=== PATIENT | female | born 1990 | race Caucasian/White ===

== ENCOUNTER 2022-06-29 18:11 | Inpatient (IN) ==
[2022-06-29] MEDS ORDERED: ACETAMINOPHEN 325 MG TAB PO STA (18:18)
[2022-06-29 18:52] LABS: Hematocrit (blood only) 34.1 % (34.1-44.9); Hemoglobin 11.4 g/dl (12.0-16.0); Mean Corpuscular Hemoglobin 30.2 pg (25.0-34.0); Mean Corpuscular Hgb Conc 33.4 g/dL (32.0-36.0); Mean Corpuscular Volume 90.5 fL (80.0-100.0); Mean Platelet Volume 9.5 fL (9.4-12.3); Platelet Count 254 K/uL (130-400); RDW Coefficient of Variation 13.1 % (11.5-14.5); Red Blood Count 3.77 M/uL (3.93-5.22); White Blood Count 14.27 K/ul (4.8-10.8)
--- NOTE | 2022-06-29 18:54 | XRay Report ---
XR chest 1V not portable CLINICAL HISTORY: Chest Pain. COMPARISON STUDY: No previous studies for comparison. TECHNIQUE: 1 view of the chest FINDINGS: Single frontal view of the chest demonstrates the cardiomediastinal silhouette to be within normal li mits. The lungs are clear of alveolar opacities. There is no evidence for pleural effusion. There is no evidence for vascular congestion. There is no acute osseous pathology. IMPRESSION: 1. No acute cardiopulmonary disease. ACT 112: Negative or not required by law. Electronically signed by: Vic Singletary M.D. 06/29/2022 6:52 PM
[2022-06-29 19:03] LABS: INR 1.1 (0.9-1.1); Partial Thromboplastin Ratio 0.9; Partial Thromboplastin Time 25.5 Seconds (21.0-31.0); Prothrombin Time 11.4 Seconds (9.0-12.0)
[2022-06-29 19:10] LABS: ALC (manual) 7.42 K/uL (1.2-3.4); ANC (manual) 6.56 K/uL (1.4-6.5); Eosinophils # (manual) 0.14 K/uL (0-0.50); Eosinophils % (manual) 1 %; Lymphocytes # (manual) 2.43 K/uL (1.2-3.4); Lymphocytes % (manual) 17 %; Monocytes # (manual) 0.29 K/uL (0.24-0.82); Monocytes % (manual) 2 %; Neutrophils # (manual) 6.56 K/uL (1.4-6.5); Neutrophils % (manual) 46 %; Reactive Lymphocytes # (manual) 4.99 K/uL; Reactive Lymphocytes % (manual) 35 %
[2022-06-29 19:16] LABS: Albumin Globulin Ratio 1.1 (0.9-2); Albumin Level 3.8 gm/dl (3.4-5.0); Bilirubin,Total 0.6 mg/dl (0.2-1.0); Creatinine Clr Calc Pharmacy 83.7 ml/min; Est GFR (African American) 96.8 ml/min; Est GFR (Non-African American) 83.5 ml/min; Globulin 3.4 gm/dl (2.5-4.0); Potassium 3.7 mmol/L (3.5-5.1); Total Protein 7.2 gm/dl (6.0-8.3)
[2022-06-29 19:21] LABS: Troponin I High Sensitivity 67.2 pg/ml (0-14)
--- NOTE | 2022-06-29 19:21 | Emergency Department Note ---
Impression & Plan Atypical chest pain, Elevated troponin I level, Thrombophlebitis, Transaminitis ED Provider Note NAME: ANNETTE BLAND AGE: 32 SEX: F : 1990 ARRIVES VIA: Walk-In INFORMANT: Patient, ED PROVIDER(S): Justo Brown MD Chief Complaint: Shortness of breath, chest pain, fever HPI: Patient presented due to concern for chest pain and shortness of breath which began around 2 PM today. 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 The patient reportedly had fever that time but the patient denies any cough. The patient does have exertional symptoms. The patient denies any prior history of DVT or PE does not take any control no recent travel or leg swelling or calf pain. Patient did not take anything for symptoms. The patient's discomfort and shortness of breath has been fairly constant since it began around 2 PM. Patient denies any abdominal pain nausea vomiting or cough. Patient denies any prior heart or lung history and denies any alcohol tobacco or drug use. ROS: See HPI for pertinent positives and negatives. A total of 10 systems were reviewed and otherwise negative. Past medical history: See below Surgical history: See below Social history: See below Physical Exam: GENERAL: NAD, wearing a mask, non-toxic. EYE EXAM: Normal conjunctiva. PERRL, no anisocoria and EOM's grossly intact w/o pain. NECK: Supple, no nuchal rigidity, no adenopathy, non-tender. No signs of meningismus. FROM of the neck with good chin to chest and neck extension. No stridor. LUNGS: Clear to auscultation. Normal chest wall mechanics. HEART: Tachycardic and regular, no MRG. ABDOMEN: Abdomen soft, non-tender, normo-active bowel sounds, no masses, no rebound or guarding. BACK: No CVA TTP. SKIN: No rashes and no bruising. UPPER EXTREMITIES: Upper extremities are grossly normal. LOWER EXTREMITIES: Grossly normal, no edema. Negative Homans' sign bilaterally. NEURO EXAM: A&O x3, cranial nerves II-XII grossly intact, normal speech, moves all 4 extremities. Differential diagnoses: Cardiac ischemia, aortic dissection, pulmonary embolism, pneumothorax, pneumonia, pericarditis, myocarditis, esophageal rupture, GERD, cholecystitis, pancreatitis, musculoskeletal, as well as other pathologies. Course: Patient was seen and evaluated the bedside. Full history physical exam was performed. EKG interpreted by me Sinus tachycardia, rate 114, normal intervals, normal axis, no obvious ST elevations, T wave inversion in V2. Imaging Studies: See Below Cardiac monitoring: An order was placed for continuous cardiac monitoring. The monitor shows a rate of 110 with cardiac and regular rhythm. MDM: Patient presented due to concern for shortness of breath and chest pain. The patient was tachycardic with fever. The patient was ordered IV fluids antipyretics and a CT angio of the chest. Patient has a mild white count of 14 with a hemoglobin of 11. Patient's kidney function fairly unremarkable. The patient does have mild transaminitis with an elevated troponin at 67. Mild hyponatremia 133. Chest x-ray with no concerning findings. The patient's CT angiography does not show evidence of acute PE. Patient CT angiography shows minimal atelectasis at both lung bases but otherwise no acute disease. I did order a venous Doppler study as the patient stated that she had felt as later she had like a pulled muscle in her right calf. Patient was preferring to go home but I did recommend that the patient stay. The patient is agreeable to inpatient treatment at this time. I did speak with Dr. Griffith and the patient was admitted to the medicine service. I did eventually receive the results of the patient's venous right lower extremity ultrasound. Patient does have a 10 cm long segment of thrombosed right lesser saphenous vein consistent with superficial thrombophlebitis. No evidence of DVT. I did convey this finding and deferred any additional treatment to the inpatient team with Dr. Griffith. Past Med/Surg History Medical History (Updated 06/30/22 @ 00:35 by Justo Brown MD) No pertinent past medical history Surgical History (System 06/29/22 @ 20:52 by Hannah Brown) No pertinent past surgical history Social History (System 06/29/22 @ 20:52 by Hannah Brown) Smoking Status: Never smoker Preferred Language: Mexican Feels Safe at Home: Yes Allergies Allergies Allergy/AdvReac Type Severity Reaction Status Date / Time amoxicillin Allergy Severe Anaphylaxis Verified 06/29/22 20:52 Home Meds Home Medications Medication Instructions Recorded Confirmed omega-3 fatty acids 1,000 mg 1,000 mg PO DAILY 06/29/22 06/29/22 capsule Results & Data (ED) Vital Signs Vital Signs - 24 hr 06/29/22 18:15 06/29/22 18:15 06/29/22 18:23 Temperature 38.1 C H Temperature Source Temporal Artery Scan Pulse Rate 121 H Pulse Rate [Left Apical] Pulse Rate from SpO2 Sensor Pulse Rhythm [Left Apical] Pulse Strength [Left Apical] Respiratory Rate 18 Respiratory Effort / Characteristics Short of Breath Non-Labored Spontaneous Respiratory Depth Normal Blood Pressure 122/82 Blood Pressure [Right Arm] Blood Pressure Mean 95 Blood Pressure Mean [Right Arm] Pulse Oximetry 98 Oxygen Delivery Method Room Air Room Air Sepsis Recent Fever Within 48 Hours Yes Sepsis New/Unexplained Change in Mental Status No Sepsis Action Taken by Nursing No Action Required 06/29/22 19:06 06/29/22 19:06 06/29/22 19:07 Temperature Temperature Source Pulse Rate 105 H Pulse Rate [Left Apical] Pulse Rate from SpO2 Sensor Pulse Rhythm [Left Apical] Pulse Strength [Left Apical] Respiratory Rate 20 29 H Respiratory Effort / Characteristics Respiratory Depth Blood Pressure Blood Pressure [Right Arm] Blood Pressure Mean Blood Pressure Mean [Right Arm] Pulse Oximetry 98 Oxygen Delivery Method Room Air Room Air Sepsis Recent Fever Within 48 Hours Sepsis New/Unexplained Change in Mental Status Sepsis Action Taken by Nursing 06/29/22 19:10 06/29/22 19:17 06/29/22 19:17 Temperature Temperature Source Pulse Rate 105 H 109 H Pulse Rate [Left Apical] Pulse Rate from SpO2 Sensor Pulse Rhythm [Left Apical] Pulse Strength [Left Apical] Respiratory Rate 21 25 H Respiratory Effort / Characteristics Respiratory Depth Blood Pressure 108/70 Blood Pressure [Right Arm] Blood Pressure Mean 82 Blood Pressure Mean [Right Arm] Pulse Oximetry Oxygen Delivery Method Sepsis Recent Fever Within 48 Hours Sepsis New/Unexplained Change in Mental Status Sepsis Action Taken by Nursing 06/29/22 19:20 06/29/22 19:30 06/29/22 19:30 Temperature Temperature Source Pulse Rate 111 H 105 H Pulse Rate [Left Apical] Pulse Rate from SpO2 Sensor Pulse Rhythm [Left Apical] Pulse Strength [Left Apical] Respiratory Rate 16 24 Respiratory Effort / Characteristics Respiratory Depth Blood Pressure 102/70 Blood Pressure [Right Arm] Blood Pressure Mean 80 Blood Pressure Mean [Right Arm] Pulse Oximetry Oxygen Delivery Method Sepsis Recent Fever Within 48 Hours Sepsis New/Unexplained Change in Mental Status Sepsis Action Taken by Nursing 06/29/22 19:40 06/29/22 20:09 06/29/22 20:09 Temperature Temperature Source Pulse Rate 112 H 115 H Pulse Rate [Left Apical] Pulse Rate from SpO2 Sensor 116 H Pulse Rhythm [Left Apical] Pulse Strength [Left Apical] Respiratory Rate 22 20 Respiratory Effort / Characteristics Respiratory Depth Blood Pressure 114/84 Blood Pressure [Right Arm] Blood Pressure Mean 94 Blood Pressure Mean [Right Arm] Pulse Oximetry 98 Oxygen Delivery Method Sepsis Recent Fever Within 48 Hours Sepsis New/Unexplained Change in Mental Status Sepsis Action Taken by Nursing 06/29/22 20:10 06/29/22 20:20 06/29/22 20:30 Temperature Temperature Source Pulse Rate 113 H 112 H Pulse Rate [Left Apical] Pulse Rate from SpO2 Sensor 113 H 111 H Pulse Rhythm [Left Apical] Pulse Strength [Left Apical] Respiratory Rate 21 20 Respiratory Effort / Characteristics Respiratory Depth Blood Pressure 106/73 Blood Pressure [Right Arm] Blood Pressure Mean 84 Blood Pressure Mean [Right Arm] Pulse Oximetry 98 96 Oxygen Delivery Method Sepsis Recent Fever Within 48 Hours Sepsis New/Unexplained Change in Mental Status Sepsis Action Taken by Nursing 06/29/22 20:30 06/29/22 20:40 06/29/22 20:50 Temperature Temperature Source Pulse Rate 108 H 109 H 112 H Pulse Rate [Left Apical] Pulse Rate from SpO2 Sensor 109 H 110 H 123 H Pulse Rhythm [Left Apical] Pulse Strength [Left Apical] Respiratory Rate 19 19 19 Respiratory Effort / Characteristics Respiratory Depth Blood Pressure Blood Pressure [Right Arm] Blood Pressure Mean Blood Pressure Mean [Right Arm] Pulse Oximetry 97 97 97 Oxygen Delivery Method Sepsis Recent Fever Within 48 Hours Sepsis New/Unexplained Change in Mental Status Sepsis Action Taken by Nursing 06/29/22 21:00 06/29/22 21:00 06/29/22 21:10 Temperature Temperature Source Pulse Rate 107 H 105 H Pulse Rate [Left Apical] Pulse Rate from SpO2 Sensor 108 H 106 H Pulse Rhythm [Left Apical] Pulse Strength [Left Apical] Respiratory Rate 20 20 Respiratory Effort / Characteristics Respiratory Depth Blood Pressure 116/75 Blood Pressure [Right Arm] Blood Pressure Mean 88 Blood Pressure Mean [Right Arm] Pulse Oximetry 98 97 Oxygen Delivery Method Sepsis Recent Fever Within 48 Hours Sepsis New/Unexplained Change in Mental Status Sepsis Action Taken by Nursing 06/29/22 21:20 06/29/22 21:30 06/29/22 21:30 Temperature Temperature Source Pulse Rate 103 H 106 H Pulse Rate [Left Apical] Pulse Rate from SpO2 Sensor 104 H 106 H Pulse Rhythm [Left Apical] Pulse Strength [Left Apical] Respiratory Rate 26 H 21 Respiratory Effort / Characteristics Respiratory Depth Blood Pressure 110/77 Blood Pressure [Right Arm] Blood Pressure Mean 88 Blood Pressure Mean [Right Arm] Pulse Oximetry 98 98 Oxygen Delivery Method Sepsis Recent Fever Within 48 Hours Sepsis New/Unexplained Change in Mental Status Sepsis Action Taken by Nursing 06/29/22 21:40 06/29/22 21:50 06/29/22 22:30 Temperature Temperature Source Pulse Rate 112 H 101 H 111 H Pulse Rate [Left Apical] Pulse Rate from SpO2 Sensor 104 H 101 H Pulse Rhythm [Left Apical] Pulse Strength [Left Apical] Respiratory Rate 23 22 22 Respiratory Effort / Characteristics Respiratory Depth Blood Pressure 108/77 Blood Pressure [Right Arm] Blood Pressure Mean 87 Blood Pressure Mean [Right Arm] Pulse Oximetry 98 98 Oxygen Delivery Method Sepsis Recent Fever Within 48 Hours Sepsis New/Unexplained Change in Mental Status Sepsis Action Taken by Nursing 06/29/22 22:40 06/29/22 22:50 06/29/22 23:39 Temperature Temperature Source Pulse Rate 111 H 113 H Pulse Rate [Left Apical] 118 H Pulse Rate from SpO2 Sensor Pulse Rhythm [Left Apical] Regular Pulse Strength [Left Apical] Normal Respiratory Rate 23 16 20 Respiratory Effort / Characteristics Non-Labored Spontaneous Respiratory Depth Normal Blood Pressure Blood Pressure [Right Arm] 115/68 Blood Pressure Mean Blood Pressure Mean [Right Arm] 83 Pulse Oximetry 97 Oxygen Delivery Method Room Air Sepsis Recent Fever Within 48 Hours Sepsis New/Unexplained Change in Mental Status Sepsis Action Taken by [facility] Medications Current Medication List: was personally reviewed by me Laboratory Data Attestation: I reviewed the patient's lab results. Result diagrams: 06/29/22 18:35 06/29/22 18:35 Lab Results 06/29/22 06/29/22 06/29/22 Range/Units 18:35 18:35 18:35 WBC 14.27 H (4.8-10.8) K/ul RBC 3.77 L (3.93-5.22) M/uL Hgb 11.4 L (12.0-16.0) g/dl Hct 34.1 (34.1-44.9) % MCV 90.5 (80.0-100.0) fL MCH 30.2 (25.0-34.0) pg MCHC 33.4 (32.0-36.0) g/dL RDW Std Deviation 43.0 (36.4-46.3) fL RDW Coeff of Cedrick 13.1 (11.5-14.5) % Plt Count 254 (130-400) K/uL MPV 9.5 (9.4-12.3) fL Reticulocyte % (Auto) (0.5-2.0) % Reticulocyte # (0.02-0.10) 10^6/uL Neutrophils % (Manual) 46 % Lymphocytes % (Manual) 17 % Reactive Lymphs % (Man) 35 % Monocytes % (Manual) 2 % Eosinophils % (Manual) 1 % Neutrophils # (Manual) 6.56 H (1.4-6.5) K/uL Total Absolute Neuts 6.56 H (1.4-6.5) K/uL Lymphocytes # (Manual) 2.43 (1.2-3.4) K/uL Reactive Lymphs # 4.99 K/uL Total Abs Lymphocytes 7.42 H (1.2-3.4) K/uL Monocytes # (Manual) 0.29 (0.24-0.82) K/uL Eosinophils # (Manual) 0.14 (0-0.50) K/uL ESR (0-20) mm/hr PT 11.4 (9.0-12.0) Seconds INR 1.1 (0.9-1.1) APTT 25.5 (21.0-31.0) Seconds PTT Ratio 0.9 Sodium 133 L (136-145) mmol/L Potassium 3.7 (3.5-5.1) mmol/L Chloride 100 (98-107) mmol/L Carbon Dioxide 27 (21-32) mmol/L Anion Gap 6 (3-11) BUN 10 (6-23) mg/dl Creatinine 0.91 (0.6-1.2) mg/dl Est Cr Clr Drug Dosing 83.7 ml/min Est GFR ( Amer) 96.8 ml/min Est GFR (Non-Af Amer) 83.5 ml/min BUN/Creatinine Ratio 11.0 (10-20) Glucose 115 H (70-99(Fasting)) mg/dl Lactate (0.4-2.0) mmol/L Calcium 9.0 (8.5-10.1) mg/dl Magnesium 1.9 (1.7-2.4) mg/dl Iron (35-150) mcg/dl Transferrin (200-360) mg/dl Total Bilirubin 0.6 (0.2-1.0) mg/dl AST 79 H (13-39) U/L ALT 127 H (7-52) U/L Alkaline Phosphatase 190 H (34-104) U/L Troponin I High Sens 67.2 H* (0-14) pg/ml C-Reactive Protein (0-0.5) mg/dl Total Protein 7.2 (6.0-8.3) gm/dl Albumin 3.8 (3.4-5.0) gm/dl Globulin 3.4 (2.5-4.0) gm/dl Albumin/Globulin Ratio 1.1 (0.9-2) Lipase 24 (11-82) U/L SARS-CoV-2, RNA, NAAT (NEGATIVE) 06/29/22 06/29/22 06/29/22 Range/Units 18:35 18:35 19:23 WBC (4.8-10.8) K/ul RBC (3.93-5.22) M/uL Hgb (12.0-16.0) g/dl Hct (34.1-44.9) % MCV (80.0-100.0) fL MCH (25.0-34.0) pg MCHC (32.0-36.0) g/dL RDW Std Deviation (36.4-46.3) fL RDW Coeff of Cedrick (11.5-14.5) % Plt Count (130-400) K/uL MPV (9.4-12.3) fL Reticulocyte % (Auto) 3.5 H (0.5-2.0) % Reticulocyte # 0.13 H (0.02-0.10) 10^6/uL Neutrophils % (Manual) % Lymphocytes % (Manual) % Reactive Lymphs % (Man) % Monocytes % (Manual) % Eosinophils % (Manual) % Neutrophils # (Manual) (1.4-6.5) K/uL Total Absolute Neuts (1.4-6.5) K/uL Lymphocytes # (Manual) (1.2-3.4) K/uL Reactive Lymphs # K/uL Total Abs Lymphocytes (1.2-3.4) K/uL Monocytes # (Manual) (0.24-0.82) K/uL Eosinophils # (Manual) (0-0.50) K/uL ESR 25 H (0-20) mm/hr PT (9.0-12.0) Seconds INR (0.9-1.1) APTT (21.0-31.0) Seconds PTT Ratio Sodium (136-145) mmol/L Potassium (3.5-5.1) mmol/L Chloride (98-107) mmol/L Carbon Dioxide (21-32) mmol/L Anion Gap (3-11) BUN (6-23) mg/dl Creatinine (0.6-1.2) mg/dl Est Cr Clr Drug Dosing ml/min Est GFR ( Amer) ml/min Est GFR (Non-Af Amer) ml/min BUN/Creatinine Ratio (10-20) Glucose (70-99(Fasting)) mg/dl Lactate (0.4-2.0) mmol/L Calcium (8.5-10.1) mg/dl Magnesium (1.7-2.4) mg/dl Iron (35-150) mcg/dl Transferrin (200-360) mg/dl Total Bilirubin (0.2-1.0) mg/dl AST (13-39) U/L ALT (7-52) U/L Alkaline Phosphatase (34-104) U/L Troponin I High Sens (0-14) pg/ml C-Reactive Protein (0-0.5) mg/dl Total Protein (6.0-8.3) gm/dl Albumin (3.4-5.0) gm/dl Globulin (2.5-4.0) gm/dl Albumin/Globulin Ratio (0.9-2) Lipase (11-82) U/L SARS-CoV-2, RNA, NAAT NEGATIVE (NEGATIVE) 06/29/22 06/29/22 Range/Units 23:44 23:44 WBC (4.8-10.8) K/ul RBC (3.93-5.22) M/uL Hgb (12.0-16.0) g/dl Hct (34.1-44.9) % MCV (80.0-100.0) fL MCH (25.0-34.0) pg MCHC (32.0-36.0) g/dL RDW Std Deviation (36.4-46.3) fL RDW Coeff of Cedrick (11.5-14.5) % Plt Count (130-400) K/uL MPV (9.4-12.3) fL Reticulocyte % (Auto) (0.5-2.0) % Reticulocyte # (0.02-0.10) 10^6/uL Neutrophils % (Manual) % Lymphocytes % (Manual) % Reactive Lymphs % (Man) % Monocytes % (Manual) % Eosinophils % (Manual) % Neutrophils # (Manual) (1.4-6.5) K/uL Total Absolute Neuts (1.4-6.5) K/uL Lymphocytes # (Manual) (1.2-3.4) K/uL Reactive Lymphs # K/uL Total Abs Lymphocytes (1.2-3.4) K/uL Monocytes # (Manual) (0.24-0.82) K/uL Eosinophils # (Manual) (0-0.50) K/uL ESR (0-20) mm/hr PT (9.0-12.0) Seconds INR (0.9-1.1) APTT (21.0-31.0) Seconds PTT Ratio Sodium (136-145) mmol/L Potassium (3.5-5.1) mmol/L Chloride (98-107) mmol/L Carbon Dioxide (21-32) mmol/L Anion Gap (3-11) BUN (6-23) mg/dl Creatinine (0.6-1.2) mg/dl Est Cr Clr Drug Dosing ml/min Est GFR ( Amer) ml/min Est GFR (Non-Af Amer) ml/min BUN/Creatinine Ratio (10-20) Glucose (70-99(Fasting)) mg/dl Lactate 0.7 (0.4-2.0) mmol/L Calcium (8.5-10.1) mg/dl Magnesium (1.7-2.4) mg/dl Iron 25 L (35-150) mcg/dl Transferrin 233 (200-360) mg/dl Total Bilirubin (0.2-1.0) mg/dl AST (13-39) U/L ALT (7-52) U/L Alkaline Phosphatase (34-104) U/L Troponin I High Sens 166.9 H* D (0-14) pg/ml C-Reactive Protein 2.47 H (0-0.5) mg/dl Total Protein (6.0-8.3) gm/dl Albumin (3.4-5.0) gm/dl Globulin (2.5-4.0) gm/dl Albumin/Globulin Ratio (0.9-2) Lipase (11-82) U/L SARS-CoV-2, RNA, NAAT (NEGATIVE) Administered Medications Lactated Ringer's (Lr) 1,000 mls @ 80 mls/hr IV .[id number] ONE Stop: 06/30/22 10:37 Last Admin: 06/29/22 22:53 Dose: 80 mls/hr Documented By: LIZETH Magnesium Sulfate/Dextrose (Magnesium Sulfate / D5w) 1 gm in 100 mls @ 50 mls/hr IV ONE STA Stop: 06/30/22 01:36 Last Admin: 06/30/22 00:30 Dose: 50 mls/hr Documented By: MALIA Discontinued Medications Acetaminophen (Acetaminophen 325 Mg Tab) 650 mg PO NOW STA Stop: 06/29/22 18:19 Last Admin: 06/29/22 19:42 Dose: Not Given Documented By: LIZETH Acetaminophen (Acetaminophen 325 Mg Tab) Confirm Administered Dose 325 mg .ROUTE .STK-MED ONE Stop: 06/30/22 00:08 Last Admin: 06/30/22 00:10 Dose: 325 mg Documented By: MALIA Sodium Chloride (Nss 1000ml) 1,000 mls @ 999 mls/hr IV .Q1H1M ONE Stop: 06/29/22 20:38 Last Infusion: 06/29/22 21:28 Dose: 0 mls/hr Documented By: Admin: 06/29/22 20:09 Dose: 999 mls/hr Documented By: LIZETH Ioversol (Optiray 320 125ml) 120 ml IV ONCE ONE Stop: 06/29/22 20:07 Last Admin: 06/29/22 20:06 Dose: 120 ml Documented By: SURY Ketorolac Tromethamine (Ketorolac Tromethamine 15 Mg/Ml Vial) 10 mg IV NOW ONE Stop: 06/29/22 19:39 Last Admin: 06/29/22 20:09 Dose: 10 mg Documented By: LIZETH Potassium Chloride (Potassium Chloride Crtab 20 Meq Tabcr) 40 meq PO NOW STA Stop: 06/29/22 22:08 Last Admin: 06/29/22 22:53 Dose: 40 meq Documented By: LIZETH Imaging Data Radiologist's Impression: Chest X-Ray 06/29/22 18:18 XR chest 1V not portable CLINICAL HISTORY: Chest Pain. COMPARISON STUDY: No previous studies for comparison. TECHNIQUE: 1 view of the chest FINDINGS: Single frontal view of the chest demonstrates the cardiomediastinal silhouette to be within normal limits. The lungs are clear of alveolar opacities. There is no evidence for pleural effusion. There is no evidence for vascular congestion. There is no acute osseous pathology. IMPRESSION: 1. No acute cardiopulmonary disease. ACT 112: Negative or not required by law. Electronically signed by: Vic Singletary M.D. 06/29/2022 6:52 PM Chest CTA 06/29/22 19:38 CT angio chest PE protocol CLINICAL HISTORY: Chest pain and shortness of breath COMPARISON STUDY: 06/29/2022 CT DOSE: 645.92 mGy.cm TECHNIQUE: CT Angio of the chest was performed.followed by image post processing with coronal, and sagittal MIP reformats. Contrast Volume: Optiray 320, 120 ml FINDINGS: Vasculature: There is homogeneous perfusion of the pulmonary vasculature bilaterally. No intraluminal filling defects or evidence for pulmonary embolus is seen. Airway: The airway is clear. No endobronchial lesion is identified. Lungs: There is minimal atelectasis at both lung bases posteriorly. The lungs are otherwise clear of acute alveolar opacities, air bronchograms or pulmonary nodules. Pleura: There is no evidence for pleural effusion. There is no evidence for pneumothorax. Mediastinum: There is no evidence for pathologic adenopathy. The heart size is within normal limits. The thoracic aorta is within normal limits. There is no evidence for pericardial effusion. Upper abdomen: The adrenal glands are normal bilaterally. Osseous structures: There is no acute osseous pathology. Impression: 1. No CTA evidence for pulmonary embolus. 2. Minimal atelectasis at both lung bases with otherwise no acute chest disease. ACT 112: Negative or not required by law. Electronically signed by: Vic Singletary M.D. 06/29/2022 8:14 PM Discharge Plan Visit Data Chief Complaint: Chest Pain Stated Complaint: CHEST PAINS, HURTS TO BREATHE ED Provider: Justo Brown Discharge Problem: Atypical chest pain, Elevated troponin I level, Thrombophlebitis, Transaminitis Forms Stand Alone Forms: [facility] Prescriptions Prescriptions: No Action omega-3 fatty acids 1,000 mg Capsule 1,000 mg PO DAILY Referrals Referrals: PCP,NO [Primary Care Provider] -
[2022-06-29] MEDS ORDERED: KETOROLAC TROMETHAMINE 15 MG/ML VIAL IV ONE (19:38)
[2022-06-29] MEDS ORDERED: SODIUM CHLORIDE 0.9% 1000ML 1,000 ML IV ONE (19:38)
[2022-06-29] MEDS ORDERED: OPTIRAY 320 125ml IV ONE (20:06)
--- NOTE | 2022-06-29 20:16 | CT Scan Report ---
CT angio chest PE protocol CLINICAL HISTORY: Chest pain and shortness of breath COMPARISON STUDY: 06/29/2022 CT DOSE: 645.92 mGy.cm TECHNIQUE: CT Angio of the chest was performed.followed by image post processing with coronal, and s agittal MIP reformats. Contrast Volume: Optiray 320, 120 ml FINDINGS: Vasculature: There is homogeneous perfusion of the pulmonary vasculature bilaterally. No intraluminal filling defects or evidence for pulmonary embolus is seen. Airway: The airway is clear. No endobronchial lesion is identified. Lungs: There is minimal atelectasis at both lung bases posteriorly. The lungs are otherwise clear of acute alveolar opacities, air bronchograms or pulmonary nodules. Pleura: There is no evidence for pleural effusion. There is no evidence for pneumothorax. Mediastinum: There is no evidence for pathologic adenopathy. The heart size is within normal limits. The thoracic aorta is within normal limits. There is no evidence for pericardial effusion. Upper abdomen: The adrenal glands are normal bilaterally. Osseous structures: There is no acute osseous pathology. Impression: 1. No CTA evidence for pulmonary embolus. 2. Minimal atelectasis at both lung bases with otherwise no acute chest disease. ACT 112: Negative or not required by law. Electronically signed by: Vic Singletary M.D. 06/29/2022 8:14 PM
[2022-06-29] MEDS ORDERED: POTASSIUM CHLORIDE CRTAB 20 MEQ TABCR PO STA (22:07)
[2022-06-29] MEDS ORDERED: LACTATED RINGER'S 1,000 ML IV ONE (22:08)
[2022-06-29 22:26] LABS: Magnesium 1.9 mg/dl (1.7-2.4)
--- NOTE | 2022-06-29 23:01 | History & Physical Report ---
Date of Service June 29, 2022 Assessment & Plan (1) Sepsis: Plan: Possible viral pericarditis Equivocal Lyme screen rule out other tickborne diseases Troponin elevation secondary to illness LE thrombophlebitis Abnormal LFTs possibly from viral illness/?Tickborne illness hyperglycemia rule out DM New onset anemia, FOBT done at the ER was negative. Past tobacco abuse PCU CS NSAID trial for presumptive viral pericarditis and LE thrombophlebitis Follow troponin TTE, Cardiology consult Re: Chest pain, troponin elevation Doxycycline for equivocal Lyme screen Tickborne panel Follow LFTs, GI consult if with progression Check hemoglobin A1c Anemia work-up (patient currently refusing to consent to blood transfusion if needed) DVT prophylaxis. Lovenox subcu Full code Text document was generated using [employer] voice recognition software. It may contain grammatical or spelling errors. Kindly contact undersigned for clarification of any documentation item in question. History of Present Illness Chief Complaint: Chest pain Primary Care Provider: NO PCP History obtained from patient and records. Medical history significant for past tobacco abuse. 1 day history of pleuritic chest pain and shortness of breath. Left-sided upper abdominal pain under the ribs. No unusual cough symptoms. No unusual flulike symptoms. No recent tick bites. Achy leg discomfort without unusual swelling. Denies black/bloody stools/hematuria/menorrhagia symptoms. Denies inordinate alcohol intake. Last EtOH intake was 4 days ago. No prior episodes. Patient consulted ER for evaluation. 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 Allergies Allergy/AdvReac Type Severity Reaction Status Date / Time amoxicillin Allergy Severe Anaphylaxis Verified 06/29/22 20:52 Home Medications Medication Instructions Recorded Confirmed Type omega-3 fatty acids 1,000 mg 1,000 mg PO DAILY 06/29/22 06/29/22 History capsule Past Med/Surg History Medical History (Updated 06/30/22 @ 02:36 by Alec Griffith MD) No pertinent past medical history Surgical History (System 06/29/22 @ 20:52 by Hannah Brown) No pertinent past surgical history Social History (System 06/29/22 @ 20:52 by Hannah Brown) Smoking Status: Never smoker Second Hand Exposure: No; Do You Dip or Chew Tobacco: No; Hx Alcohol Use: Yes Alcohol type: hard liquor Hx Substance Use: No Preferred Language: Iranian Communication Ability: Effective Director Of [employer] Required: No Beliefs That Will Affect Care: None Current Living Situation: Alone Other Information That Helps Us Care for You: No Feels Safe at Home: Yes Safety Concerns: Feels Safe At This Time Assistive Devices: None Review of Systems Review of Systems: As per HPI, all other systems reviewed and negative Physical Exam Physical Exam: GENERAL: Comfortable, pleasant, obese, no respiratory distress SKIN: Normal color, warm HEENT: [place] palpebral conjunctivae, no ptosis, dry buccal mucosa NECK : Supple, no tenderness CHEST : CTA, anterior chest wall tenderness HEART : Tachycardic, no obvious murmurs ABDOMEN: Some distention, nontender EXTREMITIES : Minimal LE swelling, minimal LE tenderness, no other conspicuous deformities noted NEUROLOGIC : Coherent, no facial asymmetry, no other gross focality Results & Data Results & Data ([facility]) Vital Signs (Past 12 Hours) Vital Signs Temp Pulse Resp BP Pulse Ox O2 Del Method 06/29/22 22:50 113 H 16 06/29/22 22:40 111 H 23 06/29/22 22:30 111 H 22 108/77 06/29/22 21:50 101 H 22 98 06/29/22 21:40 112 H 23 98 06/29/22 21:30 106 H 21 98 06/29/22 21:30 110/77 06/29/22 21:20 103 H 26 H 98 06/29/22 21:10 105 H 20 97 06/29/22 21:00 107 H 20 98 06/29/22 21:00 116/75 06/29/22 20:50 112 H 19 97 06/29/22 20:40 109 H 19 97 06/29/22 20:30 108 H 19 97 06/29/22 20:30 106/73 06/29/22 20:20 112 H 20 96 06/29/22 20:10 113 H 21 98 06/29/22 20:09 114/84 06/29/22 20:09 115 H 20 98 06/29/22 19:40 112 H 22 06/29/22 19:30 105 H 24 06/29/22 19:30 102/70 06/29/22 19:20 111 H 16 06/29/22 19:17 109 H 25 H 06/29/22 19:17 108/70 06/29/22 19:10 105 H 21 06/29/22 19:07 105 H 29 H 06/29/22 19:06 20 98 Room Air 06/29/22 19:06 Room Air 06/29/22 18:23 Room Air 06/29/22 18:15 38.1 C H 121 H 18 122/82 98 Room Air Laboratory Results Laboratory Results WBC 14.27 K/ul (4.8-10.8) H 06/29/22 18:35 RBC 3.77 M/uL (3.93-5.22) L 06/29/22 18:35 Hgb 11.4 g/dl (12.0-16.0) L 06/29/22 18:35 Hct 34.1 % (34.1-44.9) 06/29/22 18:35 MCV 90.5 fL (80.0-100.0) 06/29/22 18:35 MCH 30.2 pg (25.0-34.0) 06/29/22 18:35 MCHC 33.4 g/dL (32.0-36.0) 06/29/22 18:35 RDW Std Deviation 43.0 fL (36.4-46.3) 06/29/22 18:35 RDW Coeff of Cedrick 13.1 % (11.5-14.5) 06/29/22 18:35 Plt Count 254 K/uL (130-400) 06/29/22 18:35 MPV 9.5 fL (9.4-12.3) 06/29/22 18:35 Neutrophils % (Manual) 46 % 06/29/22 18:35 Lymphocytes % (Manual) 17 % 06/29/22 18:35 Reactive Lymphs % (Man) 35 % 06/29/22 18:35 Monocytes % (Manual) 2 % 06/29/22 18:35 Eosinophils % (Manual) 1 % 06/29/22 18:35 Neutrophils # (Manual) 6.56 K/uL (1.4-6.5) H 06/29/22 18:35 Total Absolute Neuts 6.56 K/uL (1.4-6.5) H 06/29/22 18:35 Lymphocytes # (Manual) 2.43 K/uL (1.2-3.4) 06/29/22 18:35 Reactive Lymphs # 4.99 K/uL 06/29/22 18:35 Total Abs Lymphocytes 7.42 K/uL (1.2-3.4) H 06/29/22 18:35 Monocytes # (Manual) 0.29 K/uL (0.24-0.82) 06/29/22 18:35 Eosinophils # (Manual) 0.14 K/uL (0-0.50) 06/29/22 18:35 PT 11.4 Seconds (9.0-12.0) 06/29/22 18:35 INR 1.1 (0.9-1.1) 06/29/22 18:35 APTT 25.5 Seconds (21.0-31.0) 06/29/22 18:35 PTT Ratio 0.9 06/29/22 18:35 Sodium 133 mmol/L (136-145) L 06/29/22 18:35 Potassium 3.7 mmol/L (3.5-5.1) 06/29/22 18:35 Chloride 100 mmol/L (98-107) 06/29/22 18:35 Carbon Dioxide 27 mmol/L (21-32) 06/29/22 18:35 Anion Gap 6 (3-11) 06/29/22 18:35 BUN 10 mg/dl (6-23) 06/29/22 18:35 Creatinine 0.91 mg/dl (0.6-1.2) 06/29/22 18:35 Est Cr Clr Drug Dosing 83.7 ml/min 06/29/22 18:35 Est GFR ( Amer) 96.8 ml/min 06/29/22 18:35 Est GFR (Non-Af Amer) 83.5 ml/min 06/29/22 18:35 BUN/Creatinine Ratio 11.0 (10-20) 06/29/22 18:35 Glucose 115 mg/dl (70-99(Fasting)) H 06/29/22 18:35 Calcium 9.0 mg/dl (8.5-10.1) 06/29/22 18:35 Magnesium 1.9 mg/dl (1.7-2.4) 06/29/22 18:35 Total Bilirubin 0.6 mg/dl (0.2-1.0) 06/29/22 18:35 AST 79 U/L (13-39) H 06/29/22 18:35 ALT 127 U/L (7-52) H 06/29/22 18:35 Alkaline Phosphatase 190 U/L (34-104) H 06/29/22 18:35 Troponin I High Sens 67.2 pg/ml (0-14) H* 06/29/22 18:35 Total Protein 7.2 gm/dl (6.0-8.3) 06/29/22 18:35 Albumin 3.8 gm/dl (3.4-5.0) 06/29/22 18:35 Globulin 3.4 gm/dl (2.5-4.0) 06/29/22 18:35 Albumin/Globulin Ratio 1.1 (0.9-2) 06/29/22 18:35 Lipase 24 U/L (11-82) 06/29/22 18:35 SARS-CoV-2, RNA, NAAT NEGATIVE (NEGATIVE) 06/29/22 19:23 Impressions Chest X-Ray 06/29/22 18:18 XR chest 1V not portable CLINICAL HISTORY: Chest Pain. COMPARISON STUDY: No previous studies for comparison. TECHNIQUE: 1 view of the chest FINDINGS: Single frontal view of the chest demonstrates the cardiomediastinal silhouette to be within normal limits. The lungs are clear of alveolar opacities. There is no evidence for pleural effusion. There is no evidence for vascular congestion. There is no acute osseous pathology. IMPRESSION: 1. No acute cardiopulmonary disease. ACT 112: Negative or not required by law. Electronically signed by: Vic Singletary M.D. 06/29/2022 6:52 PM Chest CTA 06/29/22 19:38 CT angio chest PE protocol CLINICAL HISTORY: Chest pain and shortness of breath COMPARISON STUDY: 06/29/2022 CT DOSE: 645.92 mGy.cm TECHNIQUE: CT Angio of the chest was performed.followed by image post processing with coronal, and sagittal MIP reformats. Contrast Volume: Optiray 320, 120 ml FINDINGS: Vasculature: There is homogeneous perfusion of the pulmonary vasculature bilaterally. No intraluminal filling defects or evidence for pulmonary embolus is seen. Airway: The airway is clear. No endobronchial lesion is identified. Lungs: There is minimal atelectasis at both lung bases posteriorly. The lungs are otherwise clear of acute alveolar opacities, air bronchograms or pulmonary nodules. Pleura: There is no evidence for pleural effusion. There is no evidence for pneumothorax. Mediastinum: There is no evidence for pathologic adenopathy. The heart size is within normal limits. The thoracic aorta is within normal limits. There is no evidence for pericardial effusion. Upper abdomen: The adrenal glands are normal bilaterally. Osseous structures: There is no acute osseous pathology. Impression: 1. No CTA evidence for pulmonary embolus. 2. Minimal atelectasis at both lung bases with otherwise no acute chest disease. ACT 112: Negative or not required by law. Electronically signed by: Vic Singletary M.D. 06/29/2022 8:[address] abdomen pelvis initial read: Trace amount of subsegmental atelectasis in the lung bases. The appendix is normal. Bowel loops are nondilated. No pneumoperitoneum, free fluid, or acute inflammatorychanges are seen involving the bowel. The liver, gallbladder, pancreas, spleen, and adrenal glands are unremarkable. The kidneys demonstrate normal renal contrast excretion into nondilated collecting systembilaterally. No obstruction or calculi are seen. The urinarybladder appearswithin normal limits. The uterus and adnexa are unremarkable. Skeletal structures are unremarkable RLE venous Dopplers initial read: There is a 10 cmlong segment of thrombosed right lesser saphenous vein consistent with superficial thrombophlebitis. The remaining right lower extremityvenous structures are patent and compressible. No evidence of DVT. EKG as per my interpretation : Rate 115, sinus tachycardia, normal axis, T wave abnormality septal leads Code Status & VTE Plan VTE Prophylaxis Plan VTE Prophylaxis will be ordered: Yes
[2022-06-29 23:22] LABS: Reticulocyte % 3.5 % (0.5-2.0); Reticulocytes # 0.13 10^6/uL (0.02-0.10)
[2022-06-29] MEDS ORDERED: MAGNESIUM SULFATE / D5W 1 GM/100 ML BAG IV STA (23:37)
[2022-06-30] MEDS ORDERED: ACETAMINOPHEN 325 MG TAB ONE (00:07)
[2022-06-30 00:20] LABS: C Reactive Protein 2.47 mg/dl (0-0.5)
[2022-06-30 00:29] LABS: Troponin I High Sensitivity 166.9 pg/ml (0-14)
[2022-06-30 00:40] LABS: Ferritin 170.6 ng/ml (8-388)
[2022-06-30] MEDS ORDERED: PROMETHAZINE HCL 12.5 MG in SODIUM CHLORIDE 0.9% 50 ML IV PRN (00:41)
[2022-06-30] MEDS ORDERED: KETOROLAC TROMETHAMINE 15 MG/ML VIAL IV PRN (00:41)
[2022-06-30 00:50] LABS: Folate (Folic Acid) 15.04 ng/ml (>5.38)
[2022-06-30 01:03] LABS: Procalcitonin 0.12 ng/ml (0-0.5)
[2022-06-30 01:09] LABS: Lyme Ab IgG w/WB Rflx Negative (Negative)
[2022-06-30] MEDS: traMADol HCL 50 MG TABLET PO PRN (01:22)
[2022-06-30 01:26] LABS: Lyme Ab IgM w/WB Rflx Equivocal (Negative)
[2022-06-30] MEDS ORDERED: IBUPROFEN 200 MG TAB PO PRN (02:01)
[2022-06-30] MEDS ORDERED: IBUPROFEN 600 MG TAB PO STA (02:07)
[2022-06-30] MEDS ORDERED: DOXYCYCLINE HYCLATE 100 MG in DEXTROSE 5% 100 ML IV STA (02:47)
[2022-06-30 06:29] LABS: Albumin Level 3.3 gm/dl (3.4-5.0); BUN Creatinine Ratio 9.2 (10-20); Bilirubin,Total 0.6 mg/dl (0.2-1.0); Calcium 8.4 mg/dl (8.5-10.1); Creatinine Clr Calc Pharmacy 84.6 ml/min; Est GFR (African American) 102.2 ml/min; Est GFR (Non-African American) 88.1 ml/min; Globulin 3.3 gm/dl (2.5-4.0); Potassium 4.1 mmol/L (3.5-5.1); Total Protein 6.6 gm/dl (6.0-8.3)
[2022-06-30 06:32] LABS: Hematocrit (blood only) 32.7 % (34.1-44.9); Hemoglobin 10.9 g/dl (12.0-16.0); Mean Corpuscular Hemoglobin 30.4 pg (25.0-34.0); Mean Corpuscular Hgb Conc 33.3 g/dL (32.0-36.0); Mean Corpuscular Volume 91.3 fL (80.0-100.0); Mean Platelet Volume 9.4 fL (9.4-12.3); Platelet Count 226 K/uL (130-400); RDW Coefficient of Variation 13.2 % (11.5-14.5); RDW Standard Deviation 43.5 fL (36.4-46.3); Red Blood Count 3.58 M/uL (3.93-5.22); White Blood Count 13.02 K/ul (4.8-10.8)
[2022-06-30 07:10] LABS: ALC (manual) 8.07 K/uL (1.2-3.4); ANC (manual) 4.17 K/uL (1.4-6.5); Basophils # (manual) 0.13 K/uL (0-0.2); Basophils % (manual) 1 %; Eosinophils # (manual) 0.13 K/uL (0-0.50); Eosinophils % (manual) 1 %; Lymphocytes # (manual) 2.47 K/uL (1.2-3.4); Lymphocytes % (manual) 19 %; Monocytes # (manual) 0.52 K/uL (0.24-0.82); Monocytes % (manual) 4 %; Neutrophils # (manual) 4.17 K/uL (1.4-6.5); Neutrophils % (manual) 32 %; Reactive Lymphocytes % (manual) 43 %
[2022-06-30 07:35] LABS: Estimated Average Glucose 108 mg/dl; Hemoglobin A1C 5.4 % (4.5-5.6)
[2022-06-30] MEDS: ACETAMINOPHEN 325 MG TAB PO PRN (07:53)
[2022-06-30] MEDS: ENOXAPARIN INJ 40 MG/0.4 ML SYR SQ SCH (07:53)
--- NOTE | 2022-06-30 07:59 | CT Scan Report ---
CT OF THE ABDOMEN AND PELVIS WITHOUT CONTRAST CLINICAL HISTORY: Left-sided abdominal pain. COMPARISON STUDY: No previous studies for comparison. TECHNIQUE: Axial images of the abdomen and pelvis were obtained without IV contrast. Images were revi ewed in the axial, sagittal, and coronal planes. Automated exposure control was utilized for the nick dy. A dose lowering technique was utilized adhering to the principles of ALARA. FINDINGS: Evaluation of the abdomen and pelvis is suboptimal on this unenhanced exam. No pneumatosis, free air or portal venous gas is present. There is a splenule. Contrast within the collecting system s is from recent contrast-enhanced chest CT. This decreases sensitivity for detection of urinary calc quincy. Unenhanced images of the liver, adrenal glands and pancreas are unremarkable. There is borderlin e splenomegaly. There is no hydronephrosis. No evidence for a bowel obstruction. The appendix is unre markable. Trace fluid within the pelvis is noted. There is no lymphadenopathy. There is no acute frac ture or suspicious lesion within visualized skeletal structures. IMPRESSION: 1. No acute process within the abdomen or pelvis on unenhanced exam. 2. Decreased sensitivity for detection of urinary calculi given excreted contrast from recent chest C T protocol, no hydronephrosis. 3. Trace fluid within the pelvis, likely physiologic. ACT 112: Negative or not required by law. Electronically signed by: Bill Antony M.D. 06/30/2022 7:57 AM
--- NOTE | 2022-06-30 08:11 | Ultrasound Report ---
US venous doppler LE RT HISTORY: 32 years-old Female calf pain acute pain and swelling of the right lower extremity COMPARISON: None TECHNIQUE: Multiple real-time sonographic images of the right lower extremity deep venous structures were obtained assessing grayscale appearance, color and spectral flow. FINDINGS: Occlusive thrombus of the lesser saphenous vein extends for a length of greater than 10 cm from the r egion of the popliteal fossa to be ankle. The deep venous structures appear patent. IMPRESSION: 1. No DVT. 2. Superficial venous thrombus. ACT 112: Negative or not required by law. The above report was generated using voice recognition software. It may contain grammatical, syntax o r spelling errors. Electronically signed by: Jhon Mccord M.D. 06/30/2022 8:09 AM
--- NOTE | 2022-06-30 11:16 | Cardiology Consultation ---
Date of Consultation June 30, 2022 Assessment & Plan (1) Atypical chest pain: (2) Elevated troponin I level: (3) Thrombophlebitis: (4) Transaminitis: (5) Pericarditis: Plan The patient is clinically stable. Her chest pain is reproducible by my palpation of the anterior chest wall along the costal sternal joints. This may be costochondritis or at least musculoskeletal chest pain. I would continue with the ibuprofen. She had an echocardiogram this morning which I will review. With her elevation in liver enzymes I believe a hepatitis work-up is indicated. History of Present Illness Attending Physician: Kristin Solano MD History of Present Illness This is a 32-year-old female with no prior history of heart disease. 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 She is very active and works out routinely at the gym without difficulty. She was in her usual state of health until this week when she developed chest discomfort. She describes it is more or less continuous but increases with inspiration or movement of her upper body. She has had no fever or chills. No recent viral illness. No rashes. Her IgM Lyme's titer is equivocal. Final results are pending. She has a mild elevation in her cardiac troponins. The first EKG was unremarkable however, the second has slight ST segment elevations that may be consistent with pericarditis. She is a nondiabetic. No smoking history. No prescription medications as an outpatient. The patient's CT of the chest was negative for pulmonary emboli however venous Doppler lower extremity suggest superficial phlebitis. She also has transaminase elevations. Allergies Allergy/AdvReac Type Severity Reaction Status Date / Time amoxicillin Allergy Severe Anaphylaxis Verified 06/29/22 20:52 Home Medications Medication Instructions Recorded Confirmed Type omega-3 fatty acids 1,000 mg 1,000 mg PO DAILY 06/29/22 06/29/22 History capsule Patient History Medical History No pertinent past medical history Surgical History No pertinent past surgical history Social History Smoking Status: Never smoker Second Hand Exposure: No; Do You Dip or Chew Tobacco: No; Hx Alcohol Use: Yes Alcohol type: hard liquor Hx Substance Use: No Preferred Language: Urdu Communication Ability: Effective Hybrid Tester Required: No Beliefs That Will Affect Care: None Current Living Situation: Alone Other Information That Helps Us Care for You: No Feels Safe at Home: Yes Safety Concerns: Feels Safe At This Time Assistive Devices: None Review of Systems Review of Systems: Review of Systems: See HPI for pertinent positives. All other 10 point review of systems are negative. Physical Exam Physical Exam: General: no acute distress and stated age Head: normocephalic, no masses, lesions, tenderness or abnormalities Eyes: conjunctiva are pink and non-injected, sclera clear Neck: supple, no adenopathy, no bruits, normal jugular venous pulse, no hepatojugular reflux Chest: normal shape and normal respiratory effort Lungs: clear to auscultation and percussion Cardiac Exam: - regular rate & rhythm, no murmurs gallops or rubs - normal S1, normal S2 Pulses: 2(+) throughout Abdomen: abdomen soft, non-tender, no abnormal masses and no hepatosplenomegaly Musculoskeletal: no gait disturbance, no joint inflammation, no deforming arthritis Extremities: no edema and no cyanosis Neuro: grossly normal exam Results & Data ([facility]) Vital Signs (Past 12 Hours) Vital Signs Temp Pulse Pulse Resp BP Pulse Ox O2 Del Method 06/30/22 09:04 112 H 06/30/22 07:49 37.7 C H 104 H 18 95/63 L 93 Room Air 06/30/22 03:53 37.2 C 101 H 17 94/62 L 93 Room Air 06/30/22 00:41 113 H 06/30/22 00:41 Room Air 06/30/22 00:41 37.8 C H 116 H 18 131/75 97 Room Air 06/29/22 23:39 118 H 20 115/68 97 Room Air Laboratory Results Laboratory Results - last 24 hr 06/29/22 06/29/22 06/29/22 18:35 18:35 18:35 WBC 14.27 H RBC 3.77 L Hgb 11.4 L Hct 34.1 MCV 90.5 MCH 30.2 MCHC 33.4 RDW Std Deviation 43.0 RDW Coeff of Cedrick 13.1 Plt Count 254 MPV 9.5 Reticulocyte % (Auto) Reticulocyte # Neutrophils % (Manual) 46 Lymphocytes % (Manual) 17 Reactive Lymphs % (Man) 35 Monocytes % (Manual) 2 Eosinophils % (Manual) 1 Basophils % (Manual) Neutrophils # (Manual) 6.56 H Total Absolute Neuts 6.56 H Lymphocytes # (Manual) 2.43 Reactive Lymphs # 4.99 Total Abs Lymphocytes 7.42 H Monocytes # (Manual) 0.29 Eosinophils # (Manual) 0.14 Basophils # (Manual) ESR PT 11.4 INR 1.1 APTT 25.5 PTT Ratio 0.9 Sodium 133 L Potassium 3.7 Chloride 100 Carbon Dioxide 27 Anion Gap 6 BUN 10 Creatinine 0.91 Est Cr Clr Drug Dosing 83.7 Est GFR ( Amer) 96.8 Est GFR (Non-Af Amer) 83.5 BUN/Creatinine Ratio 11.0 Glucose 115 H Estimat Average Glucose Hemoglobin A1c Lactate Calcium 9.0 Magnesium 1.9 Iron Transferrin Ferritin Total Bilirubin 0.6 AST 79 H ALT 127 H Alkaline Phosphatase 190 H Troponin I High Sens 67.2 H* C-Reactive Protein Total Protein 7.2 Albumin 3.8 Globulin 3.4 Albumin/Globulin Ratio 1.1 Lipase 24 Vitamin B12 Folate Procalcitonin TSH Anaplasma Smear A. phagocytophilum DNA Babesia Smear Lyme Disease IgG Ab Lyme IgG (Western Blot) Lyme IgG 18 kDa Band Lyme IgG 23 kDa Band Lyme IgG 28 kDa Band Lyme IgG 30 kDa Band Lyme IgG 39 kDa Band Lyme IgG 41 kDa Band Lyme IgG 45 kDa Band Lyme IgG 58 kDa Band Lyme IgG 66 kDa Band Lyme IgG 93 kDa Band Lyme IgM Ab (WB) Lyme Disease IgM Ab Lyme IgM 23 kDa Band Lyme IgM 39 kDa Band Lyme IgM 41 kDa Band E.chaffeensis DNA (PCR) SARS-CoV-2, RNA, NAAT 06/29/22 06/29/22 06/29/22 18:35 18:35 18:35 WBC RBC Hgb Hct MCV MCH MCHC RDW Std Deviation RDW Coeff of Cedrick Plt Count MPV Reticulocyte % (Auto) 3.5 H Reticulocyte # 0.13 H Neutrophils % (Manual) Lymphocytes % (Manual) Reactive Lymphs % (Man) Monocytes % (Manual) Eosinophils % (Manual) Basophils % (Manual) Neutrophils # (Manual) Total Absolute Neuts Lymphocytes # (Manual) Reactive Lymphs # Total Abs Lymphocytes Monocytes # (Manual) Eosinophils # (Manual) Basophils # (Manual) ESR 25 H PT INR APTT PTT Ratio Sodium Potassium Chloride Carbon Dioxide Anion Gap BUN Creatinine Est Cr Clr Drug Dosing Est GFR ( Amer) Est GFR (Non-Af Amer) BUN/Creatinine Ratio Glucose Estimat Average Glucose 108 Hemoglobin A1c 5.4 Lactate Calcium Magnesium Iron Transferrin Ferritin Total Bilirubin AST ALT Alkaline Phosphatase Troponin I High Sens C-Reactive Protein Total Protein Albumin Globulin Albumin/Globulin Ratio Lipase Vitamin B12 Folate Procalcitonin TSH Anaplasma Smear A. phagocytophilum DNA Babesia Smear Lyme Disease IgG Ab Lyme IgG (Western Blot) Lyme IgG 18 kDa Band Lyme IgG 23 kDa Band Lyme IgG 28 kDa Band Lyme IgG 30 kDa Band Lyme IgG 39 kDa Band Lyme IgG 41 kDa Band Lyme IgG 45 kDa Band Lyme IgG 58 kDa Band Lyme IgG 66 kDa Band Lyme IgG 93 kDa Band Lyme IgM Ab (WB) Lyme Disease IgM Ab Lyme IgM 23 kDa Band Lyme IgM 39 kDa Band Lyme IgM 41 kDa Band E.chaffeensis DNA (PCR) SARS-CoV-2, RNA, NAAT 06/29/22 06/29/22 06/29/22 19:23 23:44 23:44 WBC RBC Hgb Hct MCV MCH MCHC RDW Std Deviation RDW Coeff of Cedrick Plt Count MPV Reticulocyte % (Auto) Reticulocyte # Neutrophils % (Manual) Lymphocytes % (Manual) Reactive Lymphs % (Man) Monocytes % (Manual) Eosinophils % (Manual) Basophils % (Manual) Neutrophils # (Manual) Total Absolute Neuts Lymphocytes # (Manual) Reactive Lymphs # Total Abs Lymphocytes Monocytes # (Manual) Eosinophils # (Manual) Basophils # (Manual) ESR PT INR APTT PTT Ratio Sodium Potassium Chloride Carbon Dioxide Anion Gap BUN Creatinine Est Cr Clr Drug Dosing Est GFR ( Amer) Est GFR (Non-Af Amer) BUN/Creatinine Ratio Glucose Estimat Average Glucose Hemoglobin A1c Lactate Calcium Magnesium Iron Transferrin Ferritin Total Bilirubin AST ALT Alkaline Phosphatase Troponin I High Sens C-Reactive Protein Total Protein Albumin Globulin Albumin/Globulin Ratio Lipase Vitamin B12 Folate Procalcitonin 0.12 TSH 2.496 Anaplasma Smear A. phagocytophilum DNA Babesia Smear Lyme Disease IgG Ab Negative Lyme IgG (Western Blot) Lyme IgG 18 kDa Band Lyme IgG 23 kDa Band Lyme IgG 28 kDa Band Lyme IgG 30 kDa Band Lyme IgG 39 kDa Band Lyme IgG 41 kDa Band Lyme IgG 45 kDa Band Lyme IgG 58 kDa Band Lyme IgG 66 kDa Band Lyme IgG 93 kDa Band Lyme IgM Ab (WB) Lyme Disease IgM Ab Equivocal A Lyme IgM 23 kDa Band Lyme IgM 39 kDa Band Lyme IgM 41 kDa Band E.chaffeensis DNA (PCR) SARS-CoV-2, RNA, NAAT NEGATIVE 06/29/22 06/29/22 06/29/22 23:44 23:44 23:44 WBC RBC Hgb Hct MCV MCH MCHC RDW Std Deviation RDW Coeff of Cedrick Plt Count MPV Reticulocyte % (Auto) Reticulocyte # Neutrophils % (Manual) Lymphocytes % (Manual) Reactive Lymphs % (Man) Monocytes % (Manual) Eosinophils % (Manual) Basophils % (Manual) Neutrophils # (Manual) Total Absolute Neuts Lymphocytes # (Manual) Reactive Lymphs # Total Abs Lymphocytes Monocytes # (Manual) Eosinophils # (Manual) Basophils # (Manual) ESR PT INR APTT PTT Ratio Sodium Potassium Chloride Carbon Dioxide Anion Gap BUN Creatinine Est Cr Clr Drug Dosing Est GFR ( Amer) Est GFR (Non-Af Amer) BUN/Creatinine Ratio Glucose Estimat Average Glucose Hemoglobin A1c Lactate 0.7 Calcium Magnesium Iron 25 L Transferrin 233 Ferritin 170.6 Total Bilirubin AST ALT Alkaline Phosphatase Troponin I High Sens 166.9 H* D C-Reactive Protein 2.47 H Total Protein Albumin Globulin Albumin/Globulin Ratio Lipase Vitamin B12 579 Folate 15.04 Procalcitonin TSH Anaplasma Smear A. phagocytophilum DNA Babesia Smear Lyme Disease IgG Ab Lyme IgG (Western Blot) Lyme IgG 18 kDa Band Lyme IgG 23 kDa Band Lyme IgG 28 kDa Band Lyme IgG 30 kDa Band Lyme IgG 39 kDa Band Lyme IgG 41 kDa Band Lyme IgG 45 kDa Band Lyme IgG 58 kDa Band Lyme IgG 66 kDa Band Lyme IgG 93 kDa Band Lyme IgM Ab (WB) Lyme Disease IgM Ab Lyme IgM 23 kDa Band Lyme IgM 39 kDa Band Lyme IgM 41 kDa Band E.chaffeensis DNA (PCR) SARS-CoV-2, RNA, NAAT 06/29/22 06/30/22 06/30/22 23:44 05:48 05:48 WBC 13.02 H RBC 3.58 L Hgb 10.9 L Hct 32.7 L MCV 91.3 MCH 30.4 MCHC 33.3 RDW Std Deviation 43.5 RDW Coeff of Cedrick 13.2 Plt Count 226 MPV 9.4 Reticulocyte % (Auto) Reticulocyte # Neutrophils % (Manual) 32 Lymphocytes % (Manual) 19 Reactive Lymphs % (Man) 43 Monocytes % (Manual) 4 Eosinophils % (Manual) 1 Basophils % (Manual) 1 Neutrophils # (Manual) 4.17 Total Absolute Neuts 4.17 Lymphocytes # (Manual) 2.47 Reactive Lymphs # 5.60 Total Abs Lymphocytes 8.07 H Monocytes # (Manual) 0.52 Eosinophils # (Manual) 0.13 Basophils # (Manual) 0.13 ESR PT INR APTT PTT Ratio Sodium 135 L Potassium 4.1 Chloride 105 Carbon Dioxide 25 Anion Gap 5 BUN 8 Creatinine 0.87 Est Cr Clr Drug Dosing 84.6 Est GFR ( Amer) 102.2 Est GFR (Non-Af Amer) 88.1 BUN/Creatinine Ratio 9.2 L Glucose 98 Estimat Average Glucose Hemoglobin A1c Lactate Calcium 8.4 L Magnesium Iron Transferrin Ferritin Total Bilirubin 0.6 AST 72 H ALT 112 H Alkaline Phosphatase 158 H Troponin I High Sens C-Reactive Protein Total Protein 6.6 Albumin 3.3 L Globulin 3.3 Albumin/Globulin Ratio 1.0 Lipase Vitamin B12 Folate Procalcitonin TSH Anaplasma Smear See Comment A. phagocytophilum DNA Babesia Smear See Comment Lyme Disease IgG Ab Lyme IgG (Western Blot) Pending Lyme IgG 18 kDa Band Pending Lyme IgG 23 kDa Band Pending Lyme IgG 28 kDa Band Pending Lyme IgG 30 kDa Band Pending Lyme IgG 39 kDa Band Pending Lyme IgG 41 kDa Band Pending Lyme IgG 45 kDa Band Pending Lyme IgG 58 kDa Band Pending Lyme IgG 66 kDa Band Pending Lyme IgG 93 kDa Band Pending Lyme IgM Ab (WB) Pending Lyme Disease IgM Ab Lyme IgM 23 kDa Band Pending Lyme IgM 39 kDa Band Pending Lyme IgM 41 kDa Band Pending E.chaffeensis DNA (PCR) SARS-CoV-2, RNA, NAAT 06/30/22 06/30/22 06/30/22 05:48 05:48 05:48 WBC RBC Hgb Hct MCV MCH MCHC RDW Std Deviation RDW Coeff of Cedrick Plt Count MPV Reticulocyte % (Auto) Reticulocyte # Neutrophils % (Manual) Lymphocytes % (Manual) Reactive Lymphs % (Man) Monocytes % (Manual) Eosinophils % (Manual) Basophils % (Manual) Neutrophils # (Manual) Total Absolute Neuts Lymphocytes # (Manual) Reactive Lymphs # Total Abs Lymphocytes Monocytes # (Manual) Eosinophils # (Manual) Basophils # (Manual) ESR PT INR APTT PTT Ratio Sodium Potassium Chloride Carbon Dioxide Anion Gap BUN Creatinine Est Cr Clr Drug Dosing Est GFR ( Amer) Est GFR (Non-Af Amer) BUN/Creatinine Ratio Glucose Estimat Average Glucose Hemoglobin A1c Lactate Calcium Magnesium Iron Transferrin Ferritin Total Bilirubin AST ALT Alkaline Phosphatase Troponin I High Sens 184.6 H* C-Reactive Protein Total Protein Albumin Globulin Albumin/Globulin Ratio Lipase Vitamin B12 Folate Procalcitonin TSH Anaplasma Smear A. phagocytophilum DNA Pending Babesia Smear Lyme Disease IgG Ab Lyme IgG (Western Blot) Lyme IgG 18 kDa Band Lyme IgG 23 kDa Band Lyme IgG 28 kDa Band Lyme IgG 30 kDa Band Lyme IgG 39 kDa Band Lyme IgG 41 kDa Band Lyme IgG 45 kDa Band Lyme IgG 58 kDa Band Lyme IgG 66 kDa Band Lyme IgG 93 kDa Band Lyme IgM Ab (WB) Lyme Disease IgM Ab Lyme IgM 23 kDa Band Lyme IgM 39 kDa Band Lyme IgM 41 kDa Band E.chaffeensis DNA (PCR) Pending SARS-CoV-2, RNA, NAAT Medications Administered Current Inpatient Medications Acetaminophen (Acetaminophen 325 Mg Tab) 325 mg PO Q6H PRN PRN Reason: Mild Pain Stop: 07/30/22 00:40 Last Admin: 06/30/22 07:53 Dose: 325 mg Doxycycline Hyclate (Doxycycline Hyclate 100 Mg Cap) 100 mg PO BID [facility] Stop: 07/10/22 20:59 Enoxaparin Sodium (Enoxaparin Inj 40 Mg/0.4 Ml Syr) 40 mg SQ QAM [facility] Stop: 07/30/22 08:59 Last Admin: 06/30/22 07:53 Dose: 40 mg Promethazine HCl 12.5 mg/ (Sodium Chloride) 50.5 mls @ 202 mls/hr IV Q6H PRN PRN Reason: Nausea And Vomiting Stop: 07/30/22 00:40 Ibuprofen (Ibuprofen 600 Mg Tab) 600 mg PO Q8H [facility] Stop: 07/30/22 13:59 Ketorolac Tromethamine (Ketorolac Tromethamine 15 Mg/Ml Vial) 15 mg IV Q6H PRN PRN Reason: Pain Stop: 07/05/22 00:40 Tramadol HCl (Tramadol Hcl 50 Mg Tablet) 25 - 50 mg PO Q4H PRN PRN Reason: Pain Stop: 07/30/22 00:40 Last Admin: 06/30/22 01:22 Dose: 50 mg
[2022-06-30] MEDS: IBUPROFEN 600 MG TAB PO SCH ×2 (14:26→20:50)
--- NOTE | 2022-06-30 16:24 | Hospitalist Progress Note ---
Date of Service June 30, 2022 Assessment & Plan (1) Chest pain: (2) Elevated troponin I level: Plan: present on admission with pleuritic chest pain Possible related to pericarditis vs musculoskeletal due to reproducible by palpation of the anterior chest wall in the mid sternal area Troponin elevated at 66 then peaked to 184 ECHO showed LV systolic function is normal. no pericardial effusion . EF 55-60% CTA chest showed No CTA evidence for pulmonary embolus. cardiology on board recommended to continue the Motrin 600mg TID Will trend troponin Continue monitor in tele Fever Unknown origin Possible related to superficial thrombosis vs thick born illness Lyme IgM Ab equivocal Covid [address] chest showed no evidence to suggest pneumonia Lyme Western blot pending, A. phagocytophilum DNA pending Babesia smear showed no evidence of red blood cell inclusions to suggest Babesia Anaplasma smear showed no evidence of intracytoplasmic neutrophilic inclusions to suggest Anaplasmosis Continue doxycycline for now Blood cx pending Anemia Hgb on admission 11.4, hgb today 10.9 Iron level 25 FOBT pending Will monitor CBC Transaminitis Liver enzymes elevated on admission with AST 79 then slightly dropped to 72 and ALT 127 then slightly dropped to 112 Will monitor LFT , if elevate will check hepatitis panel Superficial venous Thrombosis Doppler u/s showed occlusive thrombus of the lesser saphenous vein extends for a length of greater than 10 cm from the region of the popliteal fossa to be ankle Continue supportive therapy Consider to repeat venous Doppler in RLE in 4 to 6 weeks if symptoms worsening DVT px on Lovenox subq Code status Full code Admission and Anticipated Discharge Date Admission Date: June 29, 2022 Subjective Pt was seen and examined for follow up of chest pain Lying in bed with no acute distress Pt said that she feels much better She said chest pain improved She has been afebrile since late last night She said that she only has a mild discomfort in her right calf area Denies any chest pain, palpitation, dizziness and SOB Review of Systems Review of Systems: All systems reviewed & are unremarkable except as noted in Subjective Physical Exam Physical Exam: General- No acute distress Head- atraumatic Eyes- PERRL, EOMI, ENT- oropharynx clear Neck- supple, no JVD Lungs- clear to auscultation Heart- regular rhythm; no murmur Abdomen- normal bowel sounds, soft, nontender Extremities- +mild R calf tenderness Neuro- alert, oriented x 3; PERRL, EOMI; no facial palsy; no dysarthria Skin- warm & dry Results & Data Results & Data ([facility]) Vital Signs (Past 12 Hours) Vital Signs Temp Pulse Pulse Resp BP Pulse Ox O2 Del Method 06/30/22 15:18 36.8 C 93 H 18 94/63 L 94 Room Air 06/30/22 11:43 36.8 C 91 H 18 96/63 L 93 Room Air 06/30/22 09:04 112 H 06/30/22 07:49 37.7 C H 104 H 18 95/63 L 93 Room Air
[2022-06-30] MEDS: DOXYCYCLINE HYCLATE 100 MG CAP PO SCH (20:50)
[2022-06-30 22:29] LABS: Appearance Urine Clear (Clear); Bacteria Urine Automated 1+ (Negative); Bilirubin Urine Negative (Negative); Blood Urine Negative (Negative); Color Urine Dark Yellow; Epithelial Cell Urine Auto >30 /lpf (0-5); Glucose Urine UA Negative (Negative); Ketones Urine Negative (Negative); Leukocyte Esterase Urine Negative (Negative); Nitrite Urine Negative (Negative); Protein Urine Trace (Negative); RBC Urine Automated 0-4 /hpf (0-4); Specific Gravity Urine 1.024 (1.000-1.030); Urobilinogen Urine Negative (Negative)
[2022-07-01] MEDS: ACETAMINOPHEN 325 MG TAB PO PRN (01:49)
[2022-07-01] MEDS: traMADol HCL 50 MG TABLET PO PRN (02:45)
[2022-07-01] MEDS: IBUPROFEN 600 MG TAB PO SCH ×3 (05:40→21:02)
[2022-07-01 07:25] LABS: Hematocrit (blood only) 32.8 % (34.1-44.9); Hemoglobin 11.2 g/dl (12.0-16.0); Mean Corpuscular Hemoglobin 30.8 pg (25.0-34.0); Mean Corpuscular Hgb Conc 34.1 g/dL (32.0-36.0); Mean Corpuscular Volume 90.1 fL (80.0-100.0); Mean Platelet Volume 10.1 fL (9.4-12.3); Platelet Count 264 K/uL (130-400); RDW Coefficient of Variation 13.6 % (11.5-14.5); RDW Standard Deviation 44.9 fL (36.4-46.3); Red Blood Count 3.64 M/uL (3.93-5.22); White Blood Count 12.25 K/ul (4.8-10.8)
[2022-07-01 07:53] LABS: Albumin Level 3.3 gm/dl (3.4-5.0); BUN Creatinine Ratio 10.7 (10-20); Bilirubin,Total 0.8 mg/dl (0.2-1.0); C Reactive Protein 5.9 mg/dl (0-0.5); Calcium 8.4 mg/dl (8.5-10.1); Creatinine Clr Calc Pharmacy 98.1 ml/min; Est GFR (African American) 122.2 ml/min; Est GFR (Non-African American) 105.5 ml/min; Globulin 3.3 gm/dl (2.5-4.0); Potassium 4.1 mmol/L (3.5-5.1); Total Protein 6.6 gm/dl (6.0-8.3)
[2022-07-01] MEDS: ENOXAPARIN INJ 40 MG/0.4 ML SYR SQ SCH (08:23)
[2022-07-01] MEDS: DOXYCYCLINE HYCLATE 100 MG CAP PO SCH ×2 (08:23→20:58)
--- NOTE | 2022-07-01 09:32 | Ultrasound Report ---
US liver CLINICAL HISTORY: transaminitis COMPARISON STUDY: CT of the abdomen and pelvis June 29, 2022. FINDINGS: Liver morphology is normal. No hepatic lesions are identified. There is borderline gallblad keaton wall thickening. No gallstones are identified. Tiny 3 mm gallbladder polyp is noted. There is no pericholecystic fluid. No biliary ductal dilatation present. Common bile duct measures 4 mm in calibe r. Pancreas is obscured. No right hydronephrosis. IMPRESSION: 1. No gallstones or biliary ductal dilatation. 2. Tiny 3 mm gallbladder polyp. ACT 112: Negative or not required by law. Electronically signed by: Bill Antony M.D. 07/01/2022 9:30 AM
--- NOTE | 2022-07-01 11:47 | Cardiology Progress Note ---
Date of Service July 01, 2022 Assessment & Plan (1) Atypical chest pain: (2) Elevated troponin I level: (3) Thrombophlebitis: (4) Transaminitis: (5) Pericarditis: Plan The patient's echocardiogram was essentially normal. She is continuing to have pleuritic type chest discomfort despite the ibuprofen. She does have an elevation in both her high-sensitivity troponin as well as transaminases. Labs are still pending. I will add colchicine to her medical regiment. Admission and Anticipated Discharge Date Admission Date: June 29, 2022 Subjective The patient is still having pleuritic chest pain. Did have some chills this morning. Review of Systems Review of Systems: Review of Systems: See HPI for pertinent positives. All other 10 point review of systems are negative. Physical Exam Physical Exam: General: no acute distress and stated age Head: normocephalic, no masses, lesions, tenderness or abnormalities Eyes: conjunctiva are pink and non-injected, sclera clear Neck: supple, no adenopathy, no bruits, normal jugular venous pulse, no hepatojugular reflux Chest: normal shape and normal respiratory effort Lungs: clear to auscultation and percussion Cardiac Exam: - regular rate & rhythm, no murmurs gallops or rubs - normal S1, normal S2 Pulses: 2(+) throughout Abdomen: abdomen soft, non-tender, no abnormal masses and no hepatosplenomegaly Musculoskeletal: no gait disturbance, no joint inflammation, no deforming arthritis Extremities: no edema and no cyanosis Neuro: grossly normal exam Results & Data ([facility]) Vital Signs (Past 12 Hours) Vital Signs Temp Pulse Pulse Resp BP Pulse Ox O2 Del Method 07/01/22 08:25 37.6 C H 115 H 19 101/67 92 Room Air 07/01/22 07:24 117 H Laboratory Results Laboratory Results - last 24 hr 06/30/22 06/30/22 07/01/22 16:47 22:18 06:42 WBC RBC Hgb Hct MCV MCH MCHC RDW Std Deviation RDW Coeff of Cedrick Plt Count MPV Sodium Potassium Chloride Carbon Dioxide Anion Gap BUN Creatinine Est Cr Clr Drug Dosing Est GFR ( Amer) Est GFR (Non-Af Amer) BUN/Creatinine Ratio Glucose Calcium Total Bilirubin AST ALT Alkaline Phosphatase Troponin I High Sens 56.7 H* D C-Reactive Protein Total Protein Albumin Globulin Albumin/Globulin Ratio Urine Color Dark Yellow Urine Appearance Clear Urine pH 6.0 Ur Specific Hopkins 1.024 Urine Protein Trace H Urine Glucose (UA) Negative Urine Ketones Negative Urine Blood Negative Urine Nitrite Negative Urine Bilirubin Negative Urine Urobilinogen Negative Ur Leukocyte Esterase Negative Urine WBC (Auto) 1-5 Urine RBC (Auto) 0-4 U Hyaline Cast (Auto) 1-5 U Epithel Cells (Auto) >30 H Urine Bacteria (Auto) 1+ H Hepatitis A IgM Ab Pending Hep Bs Antigen Pending Hep Bs Ag Confirmation Pending Hep B Core IgM Ab Pending Hepatitis C Ab (EIA) Pending Hep C Ab Signal/Cutoff Pending 07/01/22 07/01/22 06:42 06:42 WBC 12.25 H RBC 3.64 L Hgb 11.2 L Hct 32.8 L MCV 90.1 MCH 30.8 MCHC 34.1 RDW Std Deviation 44.9 RDW Coeff of Cedrick 13.6 Plt Count 264 MPV 10.1 Sodium 136 Potassium 4.1 Chloride 106 Carbon Dioxide 24 Anion Gap 6 BUN 8 Creatinine 0.75 Est Cr Clr Drug Dosing 98.1 Est GFR ( Amer) 122.2 Est GFR (Non-Af Amer) 105.5 BUN/Creatinine Ratio 10.7 Glucose 89 Calcium 8.4 L Total Bilirubin 0.8 AST 96 H ALT 137 H Alkaline Phosphatase 171 H Troponin I High Sens C-Reactive Protein 5.90 H Total Protein 6.6 Albumin 3.3 L Globulin 3.3 Albumin/Globulin Ratio 1.0 Urine Color Urine Appearance Urine pH Ur Specific Hopkins Urine Protein Urine Glucose (UA) Urine Ketones Urine Blood Urine Nitrite Urine Bilirubin Urine Urobilinogen Ur Leukocyte Esterase Urine WBC (Auto) Urine RBC (Auto) U Hyaline Cast (Auto) U Epithel Cells (Auto) Urine Bacteria (Auto) Hepatitis A IgM Ab Hep Bs Antigen Hep Bs Ag Confirmation Hep B Core IgM Ab Hepatitis C Ab (EIA) Hep C Ab Signal/Cutoff Medications Administered Current Inpatient Medications Acetaminophen (Acetaminophen 325 Mg Tab) 325 mg PO Q6H PRN PRN Reason: Mild Pain Stop: 07/30/22 00:40 Last Admin: 07/01/22 01:49 Dose: 325 mg Colchicine (Colchicine 0.6 Mg Tab) 0.6 mg PO NOW ONE Stop: 07/01/22 12:01 Colchicine (Colchicine 0.6 Mg Tab) 0.6 mg PO QAM [facility] Stop: 08/01/22 08:59 Doxycycline Hyclate (Doxycycline Hyclate 100 Mg Cap) 100 mg PO BID [facility] Stop: 07/10/22 20:59 Last Admin: 07/01/22 08:23 Dose: 100 mg Enoxaparin Sodium (Enoxaparin Inj 40 Mg/0.4 Ml Syr) 40 mg SQ QAM [facility] Stop: 07/30/22 08:59 Last Admin: 07/01/22 08:23 Dose: 40 mg Promethazine HCl 12.5 mg/ (Sodium Chloride) 50.5 mls @ 202 mls/hr IV Q6H PRN PRN Reason: Nausea And Vomiting Stop: 07/30/22 00:40 Ibuprofen (Ibuprofen 600 Mg Tab) 600 mg PO Q8H [facility] Stop: 07/30/22 13:59 Last Admin: 07/01/22 05:40 Dose: 600 mg Ketorolac Tromethamine (Ketorolac Tromethamine 15 Mg/Ml Vial) 15 mg IV Q6H PRN PRN Reason: Pain Stop: 07/05/22 00:40 Tramadol HCl (Tramadol Hcl 50 Mg Tablet) 25 - 50 mg PO Q4H PRN PRN Reason: Pain Stop: 07/30/22 00:40 Last Admin: 07/01/22 02:45 Dose: 50 mg
[2022-07-01] MEDS ORDERED: COLCHICINE 0.6 MG TAB PO ONE (12:00)
--- NOTE | 2022-07-01 18:24 | Electrocardiogram Report ---
Test Reason : Blood Pressure : / mmHG Vent. Rate : 114 BPM Atrial Rate : 114 BPM P-R Int : 140 ms QRS Dur : 074 ms QT Int : 308 ms P-R-T Axes : 059 042 047 degrees QTc Int : 424 ms Sinus tachycardia Possible Left atrial enlargement Borderline ECG No previous ECGs available Confirmed by Arpan Fallon ([id number]) on 07/01/2022 6:24:07 PM Referred By: REFERRED SELF Confirmed By:Arpan Fallon
--- NOTE | 2022-07-01 18:48 | Electrocardiogram Report ---
Test Reason : Blood Pressure : / mmHG Vent. Rate : 105 BPM Atrial Rate : 105 BPM P-R Int : 130 ms QRS Dur : 082 ms QT Int : 320 ms P-R-T Axes : 035 055 040 degrees QTc Int : 422 ms Sinus tachycardia Early repolarization When compared with ECG of 29-JUN-2022 18:23, T wave inversion no longer evident in Anterior leads Confirmed by Arpan Fallon ([id number]) on 07/01/2022 6:48:26 PM Referred By: REFERRED SELF Confirmed By:Arpan Fallon
--- NOTE | 2022-07-01 19:37 | Hospitalist Progress Note ---
Date of Service July 01, 2022 Assessment & Plan (1) Chest pain: (2) Elevated troponin I level: Plan: present on admission with pleuritic chest pain Possible related to pericarditis vs musculoskeletal due to reproducible by palpation of the anterior chest wall in the mid sternal area Troponin elevated at 66 then peaked to 184, then trending to 56.7 ECHO showed LV systolic function is normal. no pericardial effusion . EF 55-60% CTA chest showed No CTA evidence for pulmonary embolus. cardiology on board recommended to continue the Motrin 600mg TID Continue to have pleuritic chest pain. Colchicine started Continue monitor in tele Fever Unknown origin Possible related to superficial thrombosis vs thick born illness Lyme IgM Ab equivocal Covid 19 negative Blood cx and urine cx no growth She has bee afebrile in the last [address] chest showed no evidence to suggest pneumonia Lyme Western blot pending, A. phagocytophilum DNA pending Babesia smear showed no evidence of red blood cell inclusions to suggest Babesia Anaplasma smear showed no evidence of intracytoplasmic neutrophilic inclusions to suggest Anaplasmosis Continue doxycycline for now Anemia Hgb on admission 11.4, hgb today 11.2 Iron level 25 FOBT ordered Will monitor CBC Transaminitis Liver enzymes elevated on admission with AST increased from 72 to 96 and ALT from 112 to 137 Liver u/s showed normal liver morphology. No gallstones are identified. Hepatitis panel pending Superficial venous Thrombosis Doppler u/s showed occlusive thrombus of the lesser saphenous vein extends for a length of greater than 10 cm from the region of the popliteal fossa to be ankle Continue supportive therapy Consider to repeat venous Doppler in RLE in 4 to 6 weeks if symptoms worsening DVT px on Lovenox subq Code status Full code Admission and Anticipated Discharge Date Admission Date: June 29, 2022 Subjective Pt was seen and examined for follow up of chest pain Lying in bed with no acute distress Pt said that she continues to have pleuritic chest pain Denies any chest pain, palpitation, dizziness and SOB Review of Systems Review of Systems: All systems reviewed & are unremarkable except as noted in Subjective Physical Exam Physical Exam: General- No acute distress Head- atraumatic Eyes- PERRL, EOMI, ENT- oropharynx clear Neck- supple, no JVD Lungs- clear to auscultation Heart- regular rhythm; no murmur Abdomen- normal bowel sounds, soft, nontender Extremities- +mild R calf tenderness Neuro- alert, oriented x 3; PERRL, EOMI; no facial palsy; no dysarthria Skin- warm & dry, +tatoo Results & Data Results & Data ([facility]) Vital Signs (Past 12 Hours) Vital Signs Temp Pulse Pulse Resp BP Pulse Ox O2 Del Method 07/01/22 16:00 37.5 C 108 H 17 93/62 L 92 Room Air 07/01/22 14:47 128 H 07/01/22 11:55 37.6 C H 112 H 18 105/68 91 Room Air 07/01/22 08:25 37.6 C H 115 H 19 101/67 92 Room Air
[2022-07-02] MEDS: ACETAMINOPHEN 325 MG TAB PO PRN (01:11)
[2022-07-02] MEDS: traMADol HCL 50 MG TABLET PO PRN (02:15)
[2022-07-02] MEDS: IBUPROFEN 600 MG TAB PO SCH ×2 (05:25→13:42)
[2022-07-02 07:11] LABS: Albumin Level 3.2 gm/dl (3.4-5.0); Bilirubin,Total 0.7 mg/dl (0.2-1.0); Calcium 8.4 mg/dl (8.5-10.1); Creatinine Clr Calc Pharmacy 99.5 ml/min; Est GFR (African American) 122.2 ml/min; Est GFR (Non-African American) 105.5 ml/min; Globulin 3.3 gm/dl (2.5-4.0); Total Protein 6.5 gm/dl (6.0-8.3)
[2022-07-02] MEDS: DOXYCYCLINE HYCLATE 100 MG CAP PO SCH (08:47)
[2022-07-02] MEDS: ENOXAPARIN INJ 40 MG/0.4 ML SYR SQ SCH (08:47)
[2022-07-02] MEDS ORDERED: COLCHICINE 0.6 MG TAB PO SCH (09:00)
--- NOTE | 2022-07-02 14:31 | Cardiology Progress Note ---
Date of Service July 02, 2022 Assessment & Plan (1) Atypical chest pain: (2) Elevated troponin I level: (3) Thrombophlebitis: (4) Transaminitis: (5) Pericarditis: Plan I feel the patient can be discharged to outpatient follow-up. I would continue the colchicine and ibuprofen for at least a month. We will see her in follow-up before then and decide if she will need additional 2 weeks or a total of 6 weeks. We will also decide if the ibuprofen can be reduced from 600 mg 3 times daily to 200 mg 3 times daily. Would continue antibiotics for treatment of Lyme's if indicated. Admission and Anticipated Discharge Date Admission Date: June 29, 2022 Subjective The patient had an uneventful night. Her chest discomfort has improved after starting the colchicine. Review of Systems Review of Systems: Review of Systems: See HPI for pertinent positives. All ot her 10 point review of systems are negative. Physical Exam Physical Exam: General: no acute distress and stated age Head: normocephalic, no masses, lesions, tenderness or abnormalities Eyes: conjunctiva are pink and non-injected, sclera clear Neck: supple, no adenopathy, no bruits, normal jugular venous pulse, no hepatojugular reflux Chest: normal shape and normal respiratory effort Lungs: clear to auscultation and percussion Cardiac Exam: - regular rate & rhythm, no murmurs gallops or rubs - normal S1, normal S2 Pulses: 2(+) throughout Abdomen: abdomen soft, non-tender, no abnormal masses and no hepatosplenomegaly Musculoskeletal: no gait disturbance, no joint inflammation, no deforming arthritis Extremities: no edema and no cyanosis Neuro: grossly normal exam Results & Data ([facility]) Vital Signs (Past 12 Hours) Vital Signs Temp Pulse Pulse Resp BP Pulse Ox O2 Del Method 07/02/22 11:01 36.8 C 97 H 17 95/62 L 92 Room Air 07/02/22 09:00 Room Air 07/02/22 07:00 96 H 07/02/22 07:01 37 C 91 H 16 100/66 92 Room Air 07/02/22 04:16 36.7 C 94 H 18 99/68 L 92 Room Air Laboratory Results Laboratory Results - last 24 hr 07/02/22 05:52 Sodium 136 Potassium 4.0 Chloride 105 Carbon Dioxide 24 Anion Gap 7 BUN 9 Creatinine 0.75 Est Cr Clr Drug Dosing 99.5 Est GFR ( Amer) 122.2 Est GFR (Non-Af Amer) 105.5 BUN/Creatinine Ratio 12.0 Glucose 91 Calcium 8.4 L Total Bilirubin 0.7 AST 55 H ALT 104 H Alkaline Phosphatase 188 H Total Protein 6.5 Albumin 3.2 L Globulin 3.3 Albumin/Globulin Ratio 1.0 Medications Administered Current Inpatient Medications Acetaminophen (Acetaminophen 325 Mg Tab) 325 mg PO Q6H PRN PRN Reason: Mild Pain Stop: 07/30/22 00:40 Last Admin: 07/02/22 01:11 Dose: 325 mg Colchicine (Colchicine 0.6 Mg Tab) [facility] [place]: 08/01/22 08:59 Last Admin: 07/02/22 08:47 Dose: 0.6 mg Doxycycline Hyclate (Doxycycline Hyclate 100 Mg Cap) 100 mg PO BID [facility] Stop: 07/10/22 20:59 Last Admin: 07/02/22 08:47 Dose: 100 mg Enoxaparin Sodium (Enoxaparin Inj 40 Mg/0.4 Ml Syr) 40 mg SQ QAM [facility] Stop: 07/30/22 08:59 Last Admin: 07/02/22 08:47 Dose: Not Given Promethazine HCl 12.5 mg/ (Sodium Chloride) 50.5 mls @ 202 mls/hr IV Q6H PRN PRN Reason: Nausea And Vomiting Stop: 07/30/22 00:40 Ibuprofen (Ibuprofen 600 Mg Tab) 600 mg PO Q8H [facility] Stop: 07/30/22 13:59 Last Admin: 07/02/22 13:42 Dose: 600 mg Ketorolac Tromethamine (Ketorolac Tromethamine 15 Mg/Ml Vial) 15 mg IV Q6H PRN PRN Reason: Pain Stop: 07/05/22 00:40 Last Admin: 07/02/22 13:42 Dose: 15 mg Tramadol HCl (Tramadol Hcl 50 Mg Tablet) 25 - 50 mg PO Q4H PRN PRN Reason: Pain Stop: 07/30/22 00:40 Last Admin: 07/02/22 02:15 Dose: 50 mg
--- NOTE | 2022-07-02 16:17 | Discharge Summary ---
Date of Service July 02, 2022 Admission HPI Per Admitting Provider History obtained from patient and records. Medical history significant for past tobacco abuse. 1 day history of pleuritic chest pain and shortness of breath. Left-sided upper abdominal pain under the ribs. No unusual cough symptoms. No unusual flulike symptoms. No recent tick bites. Achy leg discomfort without unusual swelling. Denies black/bloody stools/hematuria/menorrhagia symptoms. Denies inordinate alcohol intake. Last EtOH intake was 4 days ago. No prior episodes. Patient consulted ER for evaluation. 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 Admission Exam Per Admitting Provider GENERAL: Comfortable, pleasant, obese, no respiratory distress SKIN: Normal color, warm HEENT: [place] palpebral conjunctivae, no ptosis, dry buccal mucosa NECK : Supple, no tenderness CHEST : CTA, anterior chest wall tenderness HEART : Tachycardic, no obvious murmurs ABDOMEN: Some distention, nontender EXTREMITIES : Minimal LE swelling, minimal LE tenderness, no other conspicuous deformities noted NEUROLOGIC : Coherent, no facial asymmetry, no other gross focality Principal Diagnosis Chest pain: Elevated troponin I level: Fever Anemia Transaminitis Superficial venous Thrombosis Discharge Exam General- No acute distress Head- atraumatic Eyes- PERRL, EOMI, ENT- oropharynx clear Neck- supple, no JVD Lungs- clear to auscultation Heart- regular rhythm; no murmur Abdomen- normal bowel sounds, soft, nontender Extremities- +mild R calf tenderness Neuro- alert, oriented x 3; PERRL, EOMI; no facial palsy; no dysarthria Skin- warm & dry, +tatoo Discharge Data Allergies Allergy/AdvReac Type Severity Reaction Status Date / Time amoxicillin Allergy Severe Anaphylaxis Verified 06/29/22 20:52 Consultations 06/29/22 22:10 ED Decision to Admit Stat 06/30/22 02:07 Consult Cardiology Routine Ordered Studies 06/29/22 19:38 CT angio chest PE protocol Stat 06/29/22 21:42 US venous doppler LE RT Urgent 06/29/22 22:53 CT abd pelvis wo con Urgent 07/01/22 07:58 US liver Routine US liver CLINICAL HISTORY: transaminitis COMPARISON STUDY: CT of the abdomen and pelvis June 29, 2022. FINDINGS: Liver morphology is normal. No hepatic lesions are identified. There is borderline gallbladder wall thickening. No gallstones are identified. Tiny 3 mm gallbladder polyp is noted. There is no pericholecystic fluid. No biliary ductal dilatation present. Common bile duct measures 4 mm in caliber. Pancreas is obscured. No right hydronephrosis. IMPRESSION: 1. No gallstones or biliary ductal dilatation. 2. Tiny 3 mm gallbladder polyp. ACT 112: Negative or not required by law. Electronically signed by: Bill Antony M.D. 07/01/2022 9:30 AM Dictated:07/01/22928 Transcribed: 07/01/22928 CT OF THE ABDOMEN AND PELVIS WITHOUT CONTRAST CLINICAL HISTORY: Left-sided abdominal pain. COMPARISON STUDY: No previous studies for comparison. TECHNIQUE: Axial images of the abdomen and pelvis were obtained without IV contrast. Images were reviewed in the axial, sagittal, and coronal planes. Automated exposure control was utilized for the study. A dose lowering t echnique was utilized adhering to the principles of ALARA. FINDINGS: Evaluation of the abdomen and pelvis is suboptimal on this unenhanced exam. No pneumatosis, free air or portal venous gas is present. There is a splenule. Contrast within the collecting systems is from recent contrast- enhanced chest CT. This decreases sensitivity for detection of urinary calculi. Unenhanced images of the liver, adrenal glands and pancreas are unremarkable. There is borderline splenomegaly. There is no hydronephrosis. No evidence for a bowel obstruction. The appendix is unremarkable. Trace fluid within the pelvis is noted. There is no lymphadenopathy. There is no acute fracture or suspicious lesion within visualized skeletal structures. IMPRESSION: 1. No acute process within the abdomen or pelvis on unenhanced exam. 2. Decreased sensitivity for detection of urinary calculi given excreted contrast from recent chest CT protocol, no hydronephrosis. 3. Trace fluid within the pelvis, likely physiologic. ACT 112: Negative or not required by law. Electronically signed by: Bill Antony M.D. 06/30/2022 7:57 AM Dictated:06/30/22 [id number] Transcribed: 06/30/22750 US venous doppler LE RT HISTORY: 32 years-old Female calf pain acute pain and swelling of the right lower extremity COMPARISON: None TECHNIQUE: Multiple real-time sonographic images of the right lower extremity deep venous structures were obtained assessing grayscale appearance, color and spectral flow. FINDINGS: Occlusive thrombus of the lesser saphenous vein extends for a length of greater than 10 cm from the region of the popliteal fossa to be ankle. The deep venous structures appear patent. IMPRESSION: 1. No DVT. 2. Superficial venous thrombus. ACT 112: Negative or not required by law. The above report was generated using voice recognition software. It may contain grammatical, syntax or spelling errors. Electronically signed by: Jhon Mccord M.D. 06/30/2022 8:09 AM Dictated:06/30/22807 Transcribed: 06/30/22807 CT angio chest PE protocol CLINICAL HISTORY: Chest pain and shortness of breath COMPARISON STUDY: 06/29/2022 CT DOSE: 645.92 mGy.cm TECHNIQUE: CT Angio of the chest was performed.followed by image post processing with coronal, and sagittal MIP reformats. Contrast Volume: Optiray 320, 120 ml FINDINGS: Vasculature: There is homogeneous perfusion of the pulmonary vasculature bilaterally. No intraluminal filling defects or evidence for pulmonary embolus is seen. Airway: The airway is clear. No endobronchial lesion is identified. Lungs: There is minimal atelectasis at both lung bases posteriorly. The lungs are otherwise clear of acute alveolar opacities, air bronchograms or pulmonary nodules. Pleura: There is no evidence for pleural effusion. There is no evidence for pneumothorax. Mediastinum: There is no evidence for pathologic adenopathy. The heart size is within normal limits. The thoracic aorta is within normal limits. There is no evidence for pericardial effusion. Upper abdomen: The adrenal glands are normal bilaterally. Osseous structures: There is no acute osseous pathology. Impression: 1. No CTA evidence for pulmonary embolus. 2. Minimal atelectasis at both lung bases with otherwise no acute chest disease. ACT 112: Negative or not required by law. Electronically signed by: Vic Singletary M.D. 06/29/2022 8:14 PM Dictated:06/29/222009 Transcribed: 06/29/222009 XR chest 1V not portable CLINICAL HISTORY: Chest Pain. COMPARISON STUDY: No previous studies for comparison. TECHNIQUE: 1 view of the chest FINDINGS: Single frontal view of the chest demonstrates the cardiomediastinal silhouette to be within normal limits. The lungs are clear of alveolar opacities. There is no evidence for pleural effusion. There is no evidence for vascular congestion. There is no acute osseous pathology. IMPRESSION: 1. No acute cardiopulmonary disease. ACT 112: Negative or not required by law. Electronically signed by: Vic Singletary M.D. 06/29/2022 6:52 PM Dictated:06/29/221850 Transcribed: 06/29/221850 Hospital Course (1) Chest pain: (2) Elevated troponin I level: present on admission with pleuritic chest pain Possible related to pericarditis vs musculoskeletal due to reproducible by palpation of the anterior chest wall in the mid sternal area Troponin elevated at 66 then peaked to 184, then trending to 56.7 ECHO showed LV systolic function is normal. no pericardial effusion . EF 55-60% CTA chest showed No CTA evidence for pulmonary embolus. cardiology on board recommended to continue the Motrin 600mg TID Pleuritic chest discomfort improves after the colchicine, will continue Continue tramadol prn Discussed with cardiology that recommended to continue Colchicine and motrin for 4 weeks on discharge Pt will follow up with cardiology outpatient to decide if she will need additional 2 weeks or a total of 6 weeks course of treatment with colchicine and motrin Ok from cardiology standpoint to discharge home today Fever Unknown origin Possible related to superficial thrombosis vs thick born illness Lyme IgM Ab equivocal Covid 19 negative Blood cx and urine cx no growth She has been afebrile for more than [address] chest showed no evidence to suggest pneumonia Lyme Western blot pending, A. phagocytophilum DNA pending Babesia smear showed no evidence of red blood cell inclusions to suggest Babesia Anaplasma smear showed no evidence of intracytoplasmic neutrophilic inclusions to suggest Anaplasmosis Continue doxycycline on discharge Western blot titer pending Anemia Hgb on admission 11.4, hgb today 11.2 Iron level 25 Will need outpatient work up for anemia Transaminitis Liver enzymes elevated on admission with AST increased from 72 to 96 and ALT from 112 to 137 Liver u/s showed normal liver morphology. No gallstones are identified. LFT trending down Hepatitis panel pending Check LFT in 1 -2 weeks Superficial venous Thrombosis Doppler u/s showed occlusive thrombus of the lesser saphenous vein extends for a length of greater than 10 cm from the region of the popliteal fossa to be ankle case discussed with cardiology about starting on xarelto 10mg for 45 days. Since patient was starting on Motrin 600mg TID for about 2-6 weeks, we feel that will put the patient at increase risk of bleeding Will Continue supportive therapy Will repeat venous Doppler in RLE in 2 weeks to assess the extend Pt was advised to seek urgent medical attention if her symptoms worsening (chest pain, shortness of breath, fever, worsening right leg pain and swelling) DVT px on Lovenox subq during the hospital course Code status Full code Total Time Total Time Spent Total Time Spent (In Minutes): 40 minutes Discharge Plan Discharge Items Patient Disposition: Home - Self-Care Reason For Visit: SEPSIS, TROP ELEV Discharge Diagnosis: Chest pain: Elevated troponin I level: Fever Anemia Transaminitis Superficial venous Thrombosis Activity: Resume your previous activity Non-emergency contact: Primary Care Provider and Landscape Manager Call non-emergency contact if: you have any medication questions, your symptoms worsen and your temperature is above 101 Follow-up/Referrals: [facility] [Other] (Date & Time 07/09/2022 10:40 AM Provider [facility] Department [address] ) Diet: Regular Addtl Attending Provider Instructions: Follow up with your primary care provider 07/09/2022 @ 10:40 AM [facility] [address] Follow up with [facility] cardiology Dr. Perez or his colleague in 2 weeks Check LFT in 1-2 weeks to monitor your liver enzymes Hepatitis panel pending ( your provider will be able to access for the result) Continue Doxycycline for possible lyme disease ( if western blot negative, your provider will advise you to stop the doxycycline) Please avoid any other NSAIDs (such as aleve, advil, naproxen, meloxicam, ...) due to risk of bleeding and kidney injury Repeat the Venous Doppler ultrasound of right leg in 2 weeks to assess the extend of the superficial thrombus (your provider will order it) You need outpatient work up for anemia Seek urgent medical attention if you symptoms worsening (chest pain, shortness of breath, fever, worsening right leg pain and swelling) Please hold next dose of tramadol if you develop any lethargy or drowsiness Do not drive or operate any machine after taking the tramadol. Pending Studies at Discharge: Yes Studies:: Western blot for lyme Hepatitis panel Stand-Alone Forms: My [facility], Work/School Release, Smoking Cessation Medications and DC Order Prescriptions: New doxycycline hyclate 100 mg Capsule 100 mg PO BID 10 Days Qty: 20 0RF ibuprofen 600 mg Tablet 600 mg PO Q8H 30 Days Qty: 90 0RF colchicine [Colcrys] 0.6 mg Tablet 0.6 mg PO QAM 30 Days Qty: 30 0RF tramadol 50 mg Tablet 50 mg PO Q12H PRN (Reason: pain) Qty: 10 0RF Rx Instructions: please hold for lethargy and drowsiness Continued omega-3 fatty acids 1,000 mg Capsule 1,000 mg PO DAILY Discharge Orders: Discharge Order (Routine); Ordered 07/02/22 Ordered By: Kristin Solano Admission Data Admit Date/Time: 06/29/22 22:58 Attending Provider: Kristin Solano Admit Provider: Alec Griffith Primary Care Provider: PCP,NO Other Providers: Alec Griffith ; Rayray Tello ; Edwin Melara ; Collin Durbin ; Nikunj Samuels ; Omar Perez ; Pete Camarena ; Cris Morel ; Teresa Holman ; Carrol Phipps ; Damian Moore Other Interventions: Discharge Summary Assessment (RN) Last Done: 07/02/22 15:20
[2022-07-03 01:06] LABS: 18KDIGG Band NON-REACTIVE; 23KDIGG Band NON-REACTIVE; 23KDIGM Band REACTIVE; 28KDIGG Band NON-REACTIVE; 30KDIGG Band NON-REACTIVE; 39KDIGG Band NON-REACTIVE; 39KDIGM Band NON-REACTIVE; 41KDIGG Band REACTIVE; 41KDIGM Band REACTIVE; 45KDIGG Band NON-REACTIVE; 58KDIGG Band REACTIVE; 66KDIGG Band NON-REACTIVE; 93KDIGG Band NON-REACTIVE; Lyme Antibodies, WB IgG NEGATIVE (NEGATIVE); Lyme Antibodies, WB IgM POSITIVE (NEGATIVE)
[2022-07-03 03:16] LABS: HBSAG NON-REACTIVE (NON-REACTIVE); Hepatitis A Antibody IgM NON-REACTIVE (NON-REACTIVE); Hepatitis B Core Antibody IgM NON-REACTIVE (NON-REACTIVE)
[2022-07-04 10:08] LABS: Ehrlichia chaff DNA Bld Negative (Negative)
== END 2022-07-02 17:29 | disposition home or self-care (01) | DRG 315 ==
LOC: EDBD → ED 18:11 → 2S 22:58